=== PATIENT | male | born 1950 | race Caucasian/White ===

== ENCOUNTER 2020-10-21 22:35 | Inpatient (IN) | payer MEDICARE, MEDICAID, SELFPAY ==
[2020-10-21 22:37] VITALS: BP 151/81; PULSE 87; RESP 18; TEMP 36.8; O2SAT 93; BMI 47.0
--- NOTE | 2020-10-21 22:40 | XR_ITS ---
WS: [id number] XR pelvis 1-2V* [id number] REASON FOR EXAM: Pain FINDINGS: Pubic symphysis and superior and interpubic rami are unremarkable. There is asymmetric arthropathy involving the hip joints characterized by severe narrowing of the tessa nt space with spurring of the acetabulum and femoral heads. No fracture or dislocation identified. XR/XR pelvis 1-2V* [id number] IMPRESSION: Moderate to severe osteoarthritis both hips.
[2020-10-21 22:42] VITALS: BP 151/81; PULSE 88; RESP 18; O2SAT 94
--- NOTE | 2020-10-21 22:57 | W.ED.GENADLT ---
HPI - General Adult General: Chief complaint: General Medical Stated complaint: PAIN ALL OVER Time Seen by Provider: 10/21/20 22:37 Source: patient and EMS Mode of arrival: EMS Limitations: no limitations History of Present Illness: HPI narrative: Mr. Muhammad is a very nice 70-year-old male brought in by EMS with report of worsening osteoarthritis pain. Patient states this pain is chronic for the past 2 or 3 days though he has had increased pain. He also admits to runny nose, cough, congestion and sore throat. Patient had a negative COVID-19 test on October 14. The patient states that he hurts primarily in his hips and has quite a bit of stiffness and difficulty walking. He otherwise denies any focal complaints or concerns. Associated symptoms: Reports malaise; Deny chest pain, confusion, diaphoresis, dyspnea, headache(s), nausea, rash, palpitations, syncope or vomiting Review of Systems Const: Reports: body aches, fatigue and malaise; Denies: fever(s), chills or diaphoresis Eyes: Denies: change in vision, blurry vision, photophobia, eye discomfort, eye discharge, eye redness or yellow eyes ENMT: Reports: throat pain; Denies: odynophagia, hoarseness, swelling of lips/tongue, ear or mastoid pain, ear discharge, change in hearing or nasal discharge Card: Denies: chest pain, palpitations, irregular heart rhythm, edema, lightheadedness, syncope, pre-syncope, dyspnea on exertion or orthopnea Resp: Denies: dyspnea, productive cough, non-productive cough, wheezing, hemoptysis or chest congestion GI: Denies: abdominal pain, nausea, vomiting, hematemesis, coffee ground emesis, heartburn, diarrhea, constipation, GI cramping, hematochezia or melena : Denies: flank pain, dysuria, urinary frequency, urinary urgency or hematuria Musc: Reports: joint pain; Denies: neck pain, back pain, extremity pain, extremity swelling, joint swelling, joint redness, joint warmth or joint stiffness Skin/Breast: Denies: rash, pruritus, erythema, skin pain or skin tenderness Neuro: Denies: headache(s), numbness in extremities, weakness in extremities, sensory changes, lack of coordination, difficulty walking, dizziness, vertigo, confusion, Slurred speech present or seizure-like activity Nikko/Lymph: Denies: easy bruising, easy bleeding, petechiae, purpura or enlarged lymph nodes All/Imm: Denies: urticaria, throat swelling, tongue swelling, facial swelling or acute wheezing PFSH ED PFSH: Medical History Chronic low back pain Diabetes DM type 2 (diabetes mellitus, type 2) Hypertension Osteoarthritis Sleep apnea Surgical History No pertinent past surgical history Family History Mother Cancer Other CAD (coronary artery disease) Social History Smoking and tobacco status: former smoker Alcohol intake: never Substance/Drug Use: never Housing: Assisted Living Facility Physical Exam Const: COMMON NORMALS: no acute distress, patient oriented x3, no limitations and alert GENERAL APPEARANCE: cooperative HENMT: COMMON NORMALS: normocephalic, atraumatic, external ears normal, EAC's normal and Normal external nose present HEAD & SCALP: normal to inspection, normocephalic and atraumatic FACE & SINUS: normal facial exam and face symmetric NOSE: Normal external nose present and Normal nares present EXTERNAL EAR: Yes external ears normal EXTERNAL AUDITORY CANAL: EAC's normal MOUTH: Normal oral and palatal mucosa present, lip normal and tongue normal Eye: COMMON NORMALS: Equal, round and reactive pupils present and conjunctivae normal GENERAL EYE: appearance normal, both eyes and all related structures ALIGNMENT: Yes alignment normal PERIORBITAL: periorbital findings normal EYELID: eyelids normal CONJUNCTIVA: Yes conjunctivae normal SCLERA: sclerae normal PUPIL: Yes Equal, round and reactive pupils present Neck/C-Spine: COMMON NORMALS: full ROM, no lymphadenopathy, supple, no meningeal signs and no JVD GENERAL: Yes normal visual inspection and Yes trachea midline Chest: COMMONS NORMALS: normal inspection of the chest and normal palpation of entire chest wall Resp: COMMON NORMALS: normal respiratory effort, No retractions, No use of accessory muscles and clear to auscultation bilaterally EFFORT & INSPECTION: Yes able to speak in complete sentences and Yes symmetric chest movement AUSCULTATION: clear to auscultation bilaterally, no crackles, no rales, no rhonchi and no wheezes Cardio: COMMON NORMALS: no JVD, regular rate, regular rhythm, S1 normal heart sound present and S2 normal heart sound present RATE: regular rate RHYTHM: regular rhythm HEART SOUNDS: S1 normal heart sound present, S2 normal heart sound present, no click, no gallops, no murmurs and no rubs GI: COMMON NORMALS: Soft to palpation and No hepatosplenomegaly present PALPATION: Yes Soft to palpation, No Tenderness to palpation present (GI), No Guarding due to palpation present (GI), No Rigid due to palpation, Yes No hepatosplenomegaly present, No Hernia present, No Palpable mass present and No Pulsatile mass present : COMMON NORMALS: Yes no CVA tenderness BLADDER/KIDNEY EXAM: Yes no CVA tenderness Back/Pelvis: COMMON NORMALS: no CVA tenderness, thoracic and lumbar spine normal to inspection, no thoracic nor lumbar tenderness and thoraco-lumbar ROM normal Extremity: COMMON NORMALS: normal to inspection, full ROM, capillary refill normal, no joint enlargement, no clubbing, cyanosis or edema and no calf tenderness Neuro: COMMON NORMALS: patient oriented x3, CN's II-XII intact bilaterally, moves all extremities, no focal motor deficits and no sensory deficits noted SENSORIUM/ORIENTATION: Yes alert MENINGEAL SIGNS: Yes no meningeal signs SPEECH: speech normal Psych: COMMON NORMALS: mental status grossly normal, Normal thought process present, cooperative, normal affect, speech normal and activity/motor behavior normal SPEECH: Yes normal speech THOUGHT PROCESS: Normal thought process present Skin: COMMON NORMALS: no rashes or lesions noted, turgor normal, no jaundice, no petechiae and no mottling GENERAL SKIN EXAM: no rashes or lesions noted and turgor normal Course Vital Signs: Vital signs: Vital Signs Temperature 98.6 F 10/22/20 03:18 Pulse Rate 71 10/22/20 04:00 Respiratory Rate 21 H 10/22/20 04:00 Blood Pressure 146/74 10/22/20 04:00 Pulse Oximetry 96 10/22/20 04:00 MDM - General Adult MDM Narrative: Medical decision making narrative: 0204 -patient has desaturated to a pulse ox 87% on room air and then with maximal amount of assistance with ambulation he desatted less than 85%. Nursing has informed me that it requires at least 2 people to help him keep upright along with using a walker. The patient got back to bed after walking less than 10 feet he had to have assistance to raise his legs in the bed because he was too weak. The patient's assisted living situation is 1 in which he has no assistance other than someone brings his meals and medicines. I do not believe it is safe for him to be discharged home in this environment. He has necessitating oxygen now so he does qualify for inpatient admission. The case was endorsed to Dr. Luevano and he is in agreement to admit for further evaluation and care. Lab Data: Attestation: I reviewed the patient's lab results. Labs: Lab Results 10/21/20 10/21/20 10/21/20 Range/Units 00:45 22:48 22:48 WBC (4.0-10.0) 10^3/ uL RBC (4.1-5.3) 10^6/u L Hgb (11.7-16.6) g/dL Hct (42.0-52.0) % MCV (80-94) fL MCH (28.0-34.0) pg MCHC (30.0-36.0) g/dL RDW (12.1-15.1) % Plt Count (130-400) 10^3/c mm MPV (7.4-10.4) fL Neut % (Auto) % Lymph % (Auto) % [place] % (Auto) % Eos % (Auto) % Baso % (Auto) % Neut # (Auto) (1.8-7.7) 10^3/u L Lymph # (Auto) (0.8-4.8) 10^3/u L [place] # (Auto) (0.2-0.9) 10^3/u L Eos # (Auto) (0.0-0.8) 10^3/u L Baso # (Auto) (0.0-0.1) 10^3/u L Nucleated RBC % (a uto) % Nucleated RBCs # /100WBC PT (12.1-14.9) SECO NDS INR (0.8-1.2) APTT (23.9-36.7) SECO NDS Fibrinogen (174-498) mg/dL D-Dimer (0-0.59) ug/mIFE U Specimen Type Arterial Sample Site Radial, right ABG pH 7.37 (7.35-7.45) ABG pCO2 49.4 H (35-45) mmHg ABG pO2 117.0 H (80.0-100.0) mmH g ABG HCO3 28.3 H (22-26) mmol/L ABG Base Excess 2.1 H (-2.0-2.0) mmol/ L Augusto Test Pos Hematocrit 39.9 L (42-52) % In Store Marketer ID ellpe Sodium (136-145) mmol/L Potassium (3.5-5.1) mmol/L Chloride (98-107) mmol/L Carbon Dioxide (22-29) mmol/L Anion Gap (5-19) BUN (8-23) mg/dL Creatinine (0.7-1.2) mg/dL GFR Calculation Glucose (65-115) mg/dL Calculated Osmolal ity (285-295) mOsm/k g Lactic Acid (0.5-2.2) mmol/L Calcium (8.5-10.5) mg/dL Magnesium (1.7-2.3) mg/dL Total Bilirubin (0.15-1.2) mg/dL AST (0-40) U/L ALT (0-41) U/L Alkaline Phosphata se (40-130) IU/L Troponin T Gen 5 n g/L (0-15) ng/L C-Reactive Protein (0.0-4.9) mg/L Total Protein (6.6-8.7) g/dL Albumin (3.5-5.2) g/dL Globulin (1.3-4.6) g/dL Procalcitonin (0-0.5) ng/mL Influenza Type A A g Negative (Negative) Influenza Type B A g Negative (Negative) SARS-CoV-2 Ag (Rap id) (Negative) Group A Strep Rapi d Negative (Negative) 10/21/20 10/21/20 10/21/20 Range/Units 22:48 23:06 23:06 WBC 5.9 (4.0-10.0) 10^3/ uL RBC 4.68 (4.1-5.3) 10^6/u L Hgb 13.9 (11.7-16.6) g/dL Hct 41.1 L (42.0-52.0) % MCV 87.8 (80-94) fL MCH 29.7 (28.0-34.0) pg MCHC 33.8 (30.0-36.0) g/dL RDW 13.8 (12.1-15.1) % Plt Count 170 (130-400) 10^3/c mm MPV 9.3 (7.4-10.4) fL Neut % (Auto) 67.1 % Lymph % (Auto) 13.4 % [place] % (Auto) 18.5 % Eos % (Auto) 0.3 % Baso % (Auto) 0.5 % Neut # (Auto) 3.94 (1.8-7.7) 10^3/u L Lymph # (Auto) 0.8 (0.8-4.8) 10^3/u L [place] # (Auto) 1.1 H (0.2-0.9) 10^3/u L Eos # (Auto) 0.0 (0.0-0.8) 10^3/u L Baso # (Auto) 0.0 (0.0-0.1) 10^3/u L Nucleated RBC % (a uto) 0 % Nucleated RBCs # 0.0 /100WBC PT (12.1-14.9) SECO NDS INR (0.8-1.2) APTT (23.9-36.7) SECO NDS Fibrinogen (174-498) mg/dL D-Dimer (0-0.59) ug/mIFE U Specimen Type Sample Site ABG pH (7.35-7.45) ABG pCO2 (35-45) mmHg ABG pO2 (80.0-100.0) mmH g ABG HCO3 (22-26) mmol/L ABG Base Excess (-2.0-2.0) mmol/ L Augusto Test Hematocrit (42-52) % In Store Marketer ID Sodium 131 L (136-145) mmol/L Potassium 4.0 (3.5-5.1) mmol/L Chloride 93 L (98-107) mmol/L Carbon Dioxide 25 (22-29) mmol/L Anion Gap 17.0 (5-19) BUN 21 (8-23) mg/dL Creatinine 1.0 (0.7-1.2) mg/dL GFR Calculation Not Reportable Glucose 206 H (65-115) mg/dL Calculated Osmolal ity 281 L (285-295) mOsm/k g Lactic Acid (0.5-2.2) mmol/L Calcium 9.2 (8.5-10.5) mg/dL Magnesium (1.7-2.3) mg/dL Total Bilirubin 0.4 (0.15-1.2) mg/dL AST 21 (0-40) U/L ALT 21 (0-41) U/L Alkaline Phosphata se 60 (40-130) IU/L Troponin T Gen 5 n g/L (0-15) ng/L C-Reactive Protein (0.0-4.9) mg/L Total Protein 7.6 (6.6-8.7) g/dL Albumin 4.1 (3.5-5.2) g/dL Globulin 3.5 (1.3-4.6) g/dL Procalcitonin (0-0.5) ng/mL Influenza Type A A g (Negative) Influenza Type B A g (Negative) SARS-CoV-2 Ag (Rap id) Positive H (Negative) Group A Strep Rapi d (Negative) 10/21/20 10/21/20 10/21/20 Range/Units 23:06 23:06 23:39 WBC (4.0-10.0) 10^3/ uL RBC (4.1-5.3) 10^6/u L Hgb (11.7-16.6) g/dL Hct (42.0-52.0) % MCV (80-94) fL MCH (28.0-34.0) pg MCHC (30.0-36.0) g/dL RDW (12.1-15.1) % Plt Count (130-400) 10^3/c mm MPV (7.4-10.4) fL Neut % (Auto) % Lymph % (Auto) % [place] % (Auto) % Eos % (Auto) % Baso % (Auto) % Neut # (Auto) (1.8-7.7) 10^3/u L Lymph # (Auto) (0.8-4.8) 10^3/u L [place] # (Auto) (0.2-0.9) 10^3/u L Eos # (Auto) (0.0-0.8) 10^3/u L Baso # (Auto) (0.0-0.1) 10^3/u L Nucleated RBC % (a uto) % Nucleated RBCs # /100WBC PT 14.50 (12.1-14.9) SECO NDS INR 1.10 (0.8-1.2) APTT 34.3 (23.9-36.7) SECO NDS Fibrinogen 470 (174-498) mg/dL D-Dimer 2.19 H (0-0.59) ug/mIFE U Specimen Type Sample Site ABG pH (7.35-7.45) ABG pCO2 (35-45) mmHg ABG pO2 (80.0-100.0) mmH g ABG HCO3 (22-26) mmol/L ABG Base Excess (-2.0-2.0) mmol/ L Augusto Test Hematocrit (42-52) % In Store Marketer ID Sodium (136-145) mmol/L Potassium (3.5-5.1) mmol/L Chloride (98-107) mmol/L Carbon Dioxide (22-29) mmol/L Anion Gap (5-19) BUN (8-23) mg/dL Creatinine (0.7-1.2) mg/dL GFR Calculation Glucose (65-115) mg/dL Calculated Osmolal ity (285-295) mOsm/k g Lactic Acid (0.5-2.2) mmol/L Calcium (8.5-10.5) mg/dL Magnesium (1.7-2.3) mg/dL Total Bilirubin (0.15-1.2) mg/dL AST (0-40) U/L ALT (0-41) U/L Alkaline Phosphata se (40-130) IU/L Troponin T Gen 5 n g/L (0-15) ng/L C-Reactive Protein (0.0-4.9) mg/L Total Protein (6.6-8.7) g/dL Albumin (3.5-5.2) g/dL Globulin (1.3-4.6) g/dL Procalcitonin 0.10 (0-0.5) ng/mL Influenza Type A A g (Negative) Influenza Type B A g (Negative) SARS-CoV-2 Ag (Rap id) (Negative) Group A Strep Rapi d (Negative) 10/21/20 10/21/20 10/22/20 Range/Units 23:39 23:39 00:09 WBC (4.0-10.0) 10^3/ uL RBC (4.1-5.3) 10^6/u L Hgb (11.7-16.6) g/dL Hct (42.0-52.0) % MCV (80-94) fL MCH (28.0-34.0) pg MCHC (30.0-36.0) g/dL RDW (12.1-15.1) % Plt Count (130-400) 10^3/c mm MPV (7.4-10.4) fL Neut % (Auto) % Lymph % (Auto) % [place] % (Auto) % Eos % (Auto) % Baso % (Auto) % Neut # (Auto) (1.8-7.7) 10^3/u L Lymph # (Auto) (0.8-4.8) 10^3/u L [place] # (Auto) (0.2-0.9) 10^3/u L Eos # (Auto) (0.0-0.8) 10^3/u L Baso # (Auto) (0.0-0.1) 10^3/u L Nucleated RBC % (a uto) % Nucleated RBCs # /100WBC PT (12.1-14.9) SECO NDS INR (0.8-1.2) APTT (23.9-36.7) SECO NDS Fibrinogen (174-498) mg/dL D-Dimer (0-0.59) ug/mIFE U Specimen Type Sample Site ABG pH (7.35-7.45) ABG pCO2 (35-45) mmHg ABG pO2 (80.0-100.0) mmH g ABG HCO3 (22-26) mmol/L ABG Base Excess (-2.0-2.0) mmol/ L Augusto Test Hematocrit (42-52) % In Store Marketer ID Sodium (136-145) mmol/L Potassium (3.5-5.1) mmol/L Chloride (98-107) mmol/L Carbon Dioxide (22-29) mmol/L Anion Gap (5-19) BUN (8-23) mg/dL Creatinine (0.7-1.2) mg/dL GFR Calculation Glucose (65-115) mg/dL Calculated Osmolal ity (285-295) mOsm/k g Lactic Acid 1.6 (0.5-2.2) mmol/L Calcium (8.5-10.5) mg/dL Magnesium 1.8 (1.7-2.3) mg/dL Total Bilirubin (0.15-1.2) mg/dL AST (0-40) U/L ALT (0-41) U/L Alkaline Phosphata se (40-130) IU/L Troponin T Gen 5 n g/L 18 H (0-15) ng/L C-Reactive Protein 35.3 H (0.0-4.9) mg/L Total Protein (6.6-8.7) g/dL Albumin (3.5-5.2) g/dL Globulin (1.3-4.6) g/dL Procalcitonin (0-0.5) ng/mL Influenza Type A A g (Negative) Influenza Type B A g (Negative) SARS-CoV-2 Ag (Rap id) (Negative) Group A Strep Rapi d (Negative) Imaging Data^: CXR: Attestation: I personally reviewed and interpreted this imaging study as follows: My impression: Bilateral interstitial infiltrates left greater than right. Left-sided pleural effusion. CT Chest: Radiologist's impression: [address] [address] [address] Scan Report Signed Patient: Ant Muhammad #: [id number] : 1950Acct#:[id number] Age/Sex: 70 / MADM Date: 10/21/20 Loc: ERRoom/Bed: Attending Dr: Ordering Provider/Ordering MD: Amisha Emanuel DO Date of Service: 10/21/20 Procedure(s): CT angio chest PE protcl [id number] Accession Number(s): [id number] Report Number: [id number] PROCEDURE INFORMATION: Exam: CT Angiography Chest With Contrast Exam date and time: 10/21/2020 11:41 PM Age: 70 years old Clinical indication: Cough and shortness of breath; Patient HX: Cough. Congestion. SOB. Covid +. Patient unable to keep both arms above head. Morbid obesity. Iv established in top of hand. Reduced injection rate. Best exam submitted. ; Additional info: Dyspnea, positive d-dimer TECHNIQUE: Imaging protocol: Computed tomographic angiography of the chest with intravenous contrast. 3D rendering (Not supervised by radiologist): MIP and/or 3D reconstructed images were created by the technologist. Radiation optimization: All CT scans at this facility use at least one of these dose optimization techniques: automated exposure control; mA and/or kV adjustment per patient size (includes targeted exams where dose is matched to clinical indication); or iterative reconstruction. Contrast material: OMNI 350; Contrast volume: 78 ml; Contrast route: INTRAVENOUS (IV); COMPARISON: CR XR chest 1V portable [id number] 10/21/2020 11:08 PM RADIATION DOSE METRICS: Total DLP (mGy-cm): 747.17 FINDINGS: Pulmonary arteries: Normal. No pulmonary emboli. Aorta: Unremarkable. No aortic aneurysm. No aortic dissection. Lungs: Left lower lobe atelectasis versus infiltrate. Pleural space: Large left pleural effusion. Heart: Coronary artery atherosclerotic calcifications. Lymph nodes: Unremarkable. No enlarged lymph nodes. Bones/joints: Unremarkable. No acute fracture. Soft tissues: Unremarkable. CT/CT angio chest PE protcl [id number] IMPRESSION: 1. Negative for pulmonary embolus. 2. Large left pleural effusion. 3. Left lower lobe atelectasis versus infiltrate. 4. Coronary artery atherosclerotic calcifications. Radiation Dose CTDIVOL = (mGy): DLP = 747.17 (mGy-cm) Dictated By:Miguel Rivero MD Signed By:Miguel Rivero MDSigned Date/Time:10/22/2027 DD/ EKG Data^: EKG 1: Attestation: I personally reviewed and interpreted this EKG as follows: EKG interpretation date: 10/22/20 EKG interpretation time: 00:19 Interpretation: Normal sinus rhythm at 75 beats a minute, right bundle branch block, right axis deviation, no acute ST or T wave changes. Computer generated interpretation: Chest CTA 10/21/20 23:39 IMPRESSION: 1. Negative for pulmonary embolus. 2. Large left pleural effusion. 3. Left lower lobe atelectasis versus infiltrate. 4. Coronary artery atherosclerotic calcifications. 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
[2020-10-21] MEDS: ondansetron 2 mg/ML SDV 2 mL 4 MG IVP (23:03)
[2020-10-21 23:05] VITALS: RESP 16; O2SAT 94
[2020-10-21] MEDS: morphine 4 mg/mL SDV 1 mL IVP (23:05)
[2020-10-21] MEDS: sodium chloride 0.9% 1,000 ML 100 ML IV (23:06)
--- NOTE | 2020-10-21 23:11 | XR_ITS ---
WS: [id number] XR chest 1V portable [id number] REASON FOR EXAM: Cough FINDINGS: Moderate tortuosity the thoracic aorta without significant dilatation. No significant cardiomegaly. Moderate left pleural effusion and infiltrate and consolidation in the left lung base adjacent to the effusion. The right lung is relatively clear. Moderate degenerative changes in the thoracic spine and shoulder joints. XR/XR chest 1V portable [id number] IMPRESSION: Left pleural effusion and adjacent basilar lung consolidation, unknown chronici ty.
[2020-10-21 23:18] LABS: Basophils % 0.5 %; Eosinophils % 0.3 %; Hematocrit 41.1 % (42.0-52.0); Hemoglobin 13.9 g/dL (11.7-16.6); Lymphocytes # 0.8 10^3/uL (0.8-4.8); Lymphocytes % 13.4 %; Mean Corpuscular HGB Conc 33.8 g/dL (30.0-36.0); Mean Corpuscular Hemoglobin 29.7 pg (28.0-34.0); Mean Corpuscular Volume 87.8 fL (80-94); Mean Platelet Volume 9.3 fL (7.4-10.4); Monocytes # 1.1 10^3/uL (0.2-0.9); Monocytes % 18.5 %; Neutrophils # 3.94 10^3/uL (1.8-7.7); Neutrophils % 67.1 %; Nucleated Red Blood Cells % 0 %; Platelet Count 170 10^3/cmm (130-400); Red Blood Count 4.68 10^6/uL (4.1-5.3); Red Cell Distribution Width 13.8 % (12.1-15.1); White Blood Count 5.9 10^3/uL (4.0-10.0)
[2020-10-21 23:31] LABS: Influenza A by IFA Negative (Negative); Influenza B by IFA Negative (Negative)
[2020-10-21 23:32] LABS: Alanine Aminotransferase 21 U/L (0-41); Albumin Level 4.1 g/dL (3.5-5.2); Alkaline Phosphatase 60 IU/L (40-130); Aspartate Amino Transferase 21 U/L (0-40); Blood Urea Nitrogen 21 mg/dL (8-23); Calcium 9.2 mg/dL (8.5-10.5); Carbon Dioxide 25 mmol/L (22-29); Chloride 93 mmol/L (98-107); D Dimer 2.19 ug/mIFEU (0-0.59); Globulin 3.5 g/dL (1.3-4.6); Glucose 206 mg/dL (65-115); Osmolality Calculated 281 mOsm/kg (285-295); Sodium 131 mmol/L (136-145); Total Bilirubin 0.4 mg/dL (0.15-1.2); Total Protein 7.6 g/dL (6.6-8.7)
[2020-10-21 23:32] LABS: Rapid Strep A Test Negative (Negative); SARS Covid-2 Antigen Positive (Negative)
--- NOTE | 2020-10-21 23:39 | ECG_ITS ---
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 Measurements Intervals [place] Rate: 75 P: 2 WI: 200 QRS: 103 QRSD: 121 T: 42 QT: 393 QTc: 440 Interpretive Statements SINUS RHYTHM RIGHT AXIS DEVIATION [QRS AXIS > 100] RIGHT BUNDLE BRANCH BLOCK [120+ ms QRS DURATION, UPRIGHT V1, 40+ ms S IN I/aVL/V4/V5/V6] No previous ECG available for comparison Electronically Signed On 10-22-2020 19:40:07 FACTORER by Nicholas Lam M.D. [id number]
--- NOTE | 2020-10-21 23:39 | CTR_ITS ---
PROCEDURE INFORMATION: Exam: CT Angiography Chest With Contrast Exam date and time: 10/21/2020 11:41 PM Age: 70 years old Clinical indication: Cough and shortness of breath; Patient HX: Cough. Congestion. SOB. Covid +. Patient unable to keep both arms above head. Morbid obesity. Iv established in top of hand. Reduced injection rate. Best exam submitted. ; Additional info: Dyspnea, positive d-dimer TECHNIQUE: Imaging protocol: Computed tomographic angiography of the chest with intravenous contrast. 3D rendering (Not supervised by radiologist): MIP and/or 3D reconstructed images were created by the technologist. Radiation optimization: All CT scans at this facility use at least one of these dose optimization techniques: automated exposure control; mA and/or kV adjustment per patient size (includes targeted exams where dose is matched to clinical indication); or iterative reconstruction. Contrast material: OMNI 350; Contrast volume: 78 ml; Contrast route: INTRAVENOUS (IV); COMPARISON: CR XR chest 1V portable [id number] 10/21/2020 11:08 PM RADIATION DOSE METRICS: Total DLP (mGy-cm): 747.17 FINDINGS: Pulmonary arteries: Normal. No pulmonary emboli. Aorta: Unremarkable. No aortic aneurysm. No aortic dissection. Lungs: Left lower lobe atelectasis versus infiltrate. Pleural space: Large left pleural effusion. Heart: Coronary artery atherosclerotic calcifications. Lymph nodes: Unremarkable. No enlarged lymph nodes. Bones/joints: Unremarkable. No acute fracture. Soft tissues: Unremarkable. CT/CT angio chest PE protcl [id number] IMPRESSION: 1. Negative for pulmonary embolus. 2. Large left pleural effusion. 3. Left lower lobe atelectasis versus infiltrate. 4. Coronary artery atherosclerotic calcifications. Radiation Dose CTDIVOL = (mGy): DLP = 747.17 (mGy-cm)
[2020-10-21 23:53] VITALS: BP 154/78; PULSE 88; RESP 16; O2SAT 94
[2020-10-21] MEDS: dexamethasone 4 mg/mL INJ 6 MG IVP (23:53)
[2020-10-21 23:55] LABS: Fibrinogen 470 mg/dL (174-498); Partial Thromboplastin Time 34.3 SECONDS (23.9-36.7)
[2020-10-21 23:58] LABS: C Reactive Protein 35.3 mg/L (0.0-4.9); Magnesium 1.8 mg/dL (1.7-2.3)
[2020-10-21 23:59] LABS: Troponin T (5th) Once 18 ng/L (0-15)
[2020-10-22] VITALS (125 sets, daily range): BP systolic 107–173; BP diastolic 54–93; PULSE 52–99; RESP 10–24; TEMP 36.6–37; O2SAT 85–100
[2020-10-22] MEDS: iohexol 350 mg/mL 100 mL Btl IV (00:16)
[2020-10-22 00:54] LABS: ABG PCO2 49.4 mmHg (35-45); ABG PH Result 7.37 (7.35-7.45); Arterial Blood Gas Hematocrit 39.9 % (42-52); Base Excess ABG 2.1 mmol/L (-2.0-2.0); Blood Gas Allen Test Pos; Blood Gas Sample Site Radial, right; Blood Gas Sample Type Arterial; HCO3 ABG 28.3 mmol/L (22-26)
[2020-10-22 00:54] LABS: Lactic Sepsis W/Reflex 1.6 mmol/L (0.5-2.2)
--- NOTE | 2020-10-22 01:23 | P.HP_ITS ---
Providers/Chief Complaint Primary Care Provider: Rambo Melendez DO Chief Complaint: PAIN ALL OVER History of Present Illness Ant Muhammad is a 70 year old male who is a resident of assisted living, presented to the hospital with chief complaint of hip pain. Patient is stating that his lips locked up and he is not able to ambulate anymore at the assisted living, he is not a reliable historian, he is not able to tell me why he is taking Toprol succinate along Cardizem, Lasix, he is denying history of coronary disease, stroke, CHF, but is endorsing history of lower extremity edema, left leg DVT in the past, history of sleep apnea for which he uses CPAP. He has not noticed any fever, shortness of breath, chest pain, at the facility. He is stating there are couple of residents who are Covid positive there. His main concern was hip pain for which he decided to come to the hospital for further evaluation. He is endorsing pain in his neck, digits, arms, knees and legs. Diagnosis in the ER revealed normal hemodynamics, he was initially saturating well on room air at rest but on ambulation in the ER his oxygen dropped to 85 to 88% for which he required 2 L nasal cannula, I was given this information by the ER physician Dr. Rasheed. CTA chest was done for high D-dimer which came back negative for PE but showed moderate pleural effusion, patient is afebrile, no leukocytosis, pelvic x-ray official reading is pending, Covid antigen positive Review of Systems Const: Reports: body aches, fatigue and malaise; Denies: fever(s) or chills Eyes: Denies: change in vision ENMT: Denies: throat pain Card: Denies: chest pain Resp: Denies: dyspnea GI: Reports: constipation; Denies: abdominal pain : Denies: flank pain Musc: Reports: back pain, extremity pain, extremity swelling, joint pain, joint stiffness and muscle cramps Skin/Breast: Reports: lesions Neuro: Reports: weakness in extremities and difficulty walking; Denies: headache(s) Psych: Reports: depression Endo: Denies: polyuria Nikko/Lymph: Denies: easy bruising All/Imm: Denies: urticaria Medications/Allergies Home Medications Medication Instructions Recorded Confirmed Last Taken Type albuterol 90 mcg INHALATION Q4H PRN 10/21/20 10/21/2010/18/20 20:05 History aspirin 325 mg PO DAILY 10/21/20 10/21/20 10/21/20 06:23 History atorvastatin 10 mg PO DAILY 10/21/20 10/21/20 10/21/20 19:32 History carbamide peroxide [Debrox] 5 drp OTIC (EAR) DAILY 10/21/20 10/21/20 Unknown History cholecalciferol (vitamin D3) 25 mcg PO DAILY 10/21/20 10/21/20 Unknown History [Vitamin D3] cyclobenzaprine 10 mg PO TID PRN 10/21/20 10/21/20 10/21/20 19:32 History diclofenac sodium 2 g TOPICAL QID 10/21/20 10/21/20 Unknown History diltiazem HCl 180 mg PO DAILY 10/21/20 10/21/20 10/21/20 07:55 History docosanol [Abreva] 1 applic TOPICAL 5XD 10/21/20 10/21/20 Unknown History docusate sodium [Colace] 50 mg PO DAILY PRN 10/21/20 10/21/20 Unknown History ergocalciferol (vitamin D2) 1,250 mcg PO DAILY 10/21/20 10/21/20 10/17/20 08:14 History [Vitamin D2] furosemide [Lasix] 20 mg PO DAILY 10/21/20 10/21/20 10/21/20 07:55 History gabapentin 300 mg PO QID 10/21/20 10/21/20 10/21/20 19:32 History garlic 1,000 mg PO BID 10/21/20 10/21/20 10/21/20 19:32 History glipizide 10 mg PO BID 10/21/20 10/21/20 10/21/20 19:32 History hydrochlorothiazide 25 mg PO DAILY 10/21/20 10/21/20 10/21/20 07:55 History lisinopril 20 mg PO DAILY 10/21/20 10/21/20 10/21/20 07:32 History metformin 1,000 mg PO BID 10/21/20 10/21/20 10/21/20 19:32 History metoprolol succinate 100 mg PO Q24H 10/21/20 10/21/20 10/21/20 06:23 History naproxen 500 mg PO BID PRN 10/21/20 10/21/20 10/21/20 19:50 History pioglitazone 30 mg PO DAILY 10/21/20 10/21/20 10/21/20 06:23 History potassium gluconate 595 mg PO DAILY 10/21/20 10/21/20 10/21/20 07:55 History umeclidinium-vilanterol [Anoro 1 inh INHALATION DAILY 10/21/20 10/21/20 Unknown History Ellipta] umeclidinium-vilanterol [Anoro 1 inh INHALATION DAILY 10/21/20 10/21/20 10/21/20 06:23 History Ellipta] Allergies Allergy/AdvReac Type Severity Reaction Status Date / Time sitagliptin [From ] Allergy ADR-Nausea Verified 10/21/20 22:44 PFSH Acute PFSH: Medical History Chronic low back pain Diabetes DM type 2 (diabetes mellitus, type 2) Hypertension Osteoarthritis Sleep apnea Surgical History No pertinent past surgical history Family History Mother Cancer Other CAD (coronary artery disease) Social History Smoking and tobacco status: former smoker Alcohol intake: never Substance/Drug Use: never Housing: Assisted Living Facility Vitals/I&O/Wt Last Vital Signs Temp 98.2 F 10/21/20 22:37 Pulse 88 10/21/20 23:53 Resp 16 10/21/20 23:53 BP 154/78 10/21/20 23:53 Pulse Ox 94 10/21/20 23:53 10/21/20 10/21/20 10/22/20 14:59 22:59 06:59 Intake Total 100 / 100 Balance 100 / 100 Weight last 48 hrs Weight 148.778 kg Physical Exam Narrative: EXAM NARRATIVE: Morbidly obese male sitting comfortably in his bed in semifowler position Saturating well on 2 L nasal cannula 96% None complaining of active chest pain S1, S2 no murmur appreciated Clinically looks fluid overloaded Bilateral lower extremity 1+ pitting edema Venous stasis dermatitis noted Good airflow without active wheezing or rhonchi Abdomen distended, bowel sound present nontender, soft Patient seems lethargic and tired and not a good historian at all EOMI, PERRLA No neurological deficit GCS 15 Two-person assist ambulation in the ER revealed hypoxia on ambulation 85% Data : 10/21/20 23:06 10/21/20 23:06 A&P Assessment and plan (1) Hip pain: Status: Acute (2) Pneumonia due to COVID-19 virus: Status: Acute (3) Hypoxemia: Status: Acute (4) Pleural effusion on left: Status: Acute (5) Osteoarthritis: Status: Acute (6) Chronic low back pain: Status: Acute Additional A&P Information Acute hypoxic respiratory failure secondary COVID-19 pneumonia He also has moderate left-sided pleural effusion Patient is not sure whether he carries diagnosis of CHF however he is taking Lasix I will start him on Decadron and remdesivir, stop IV fluids that were initiated in the ER On ambulation his oxygen saturation dropped to 85% as per nursing report He is afebrile, No PE identified, high D-dimer secondary to COVID-19 inflammation Would avoid antibiotics, procalcitonin 0.1, he is not septic Bilateral hip pain Patient has history of osteoarthritis, endorses history of trigger injections Pelvic x-ray official read is pending, will obtain ESR, my suspicion for septic joint is low at this point Tylenol for analgesia Physical therapy evaluation before discharge Type 2 diabetes Consistent carb diet, moderate sliding scale Bilateral lower extremity edema Unknown history of CHF, continue Lasix and hold hydrochlorothiazide Will obtain records from [facility] Patient is full code Consistent carb cardiac diet DVT prophylaxis Lovenox Attestations Medical Necessity Statement*: Anticipating discharge in less than 48 hours currently afebrile, on Decadron and remdesivir for acute hypoxic respite failure due to positive Covid pneumonia Time Spent in Patient Care: (>than 50% of time spent in counselling and/or direct pt care on unit) . 50mins Coding Level of Care Code Acute Welt Stitch Cleaner for Chg Fwd Diagnoses Hip pain M25.559 Pneumonia due to COVID-19 virus U07.1; J12.89 Hypoxemia R09.02 Pleural effusion on left J90 Osteoarthritis M19.90 Chronic low back pain M54.5; G89.29
[2020-10-22] MEDS: HYDROcodone-acetaminophen 5-325 mg Tablet 1 TAB PO (01:36)
[2020-10-22] MEDS: ketorolac 30 mg/mL INJ 10 MG IVP (01:37)
--- NOTE | 2020-10-22 01:59 | PC.NURSE ---
PT walked per MD request. Pt required two nurses and a walker for assistance with ambulation. Pt was unable to get back in the bed. Pt oxygen saturation dropped from 88 on RA to 85.
[2020-10-22] MEDS: dexamethasone 4 mg/mL INJ 6 MG IVP (02:28)
[2020-10-22] MEDS: metoprolol succinate ER (24 HR) 100 mg Tablet PO (03:55)
[2020-10-22] MEDS: enoxaparin 40 mg/0.4 mL Syringe SUBCUT (03:55)
[2020-10-22 05:42] LABS: Basophils % 0.3 %; Hematocrit 40.2 % (42.0-52.0); Hemoglobin 13.5 g/dL (11.7-16.6); Lymphocytes # 0.6 10^3/uL (0.8-4.8); Lymphocytes % 9.8 %; Mean Corpuscular HGB Conc 33.6 g/dL (30.0-36.0); Mean Corpuscular Hemoglobin 29.7 pg (28.0-34.0); Mean Corpuscular Volume 88.4 fL (80-94); Mean Platelet Volume 9.7 fL (7.4-10.4); Monocytes # 0.4 10^3/uL (0.2-0.9); Monocytes % 6.1 %; Neutrophils # 4.93 10^3/uL (1.8-7.7); Neutrophils % 83.5 %; Nucleated Red Blood Cells % 0 %; Platelet Count 160 10^3/cmm (130-400); Red Blood Count 4.55 10^6/uL (4.1-5.3); Red Cell Distribution Width 13.9 % (12.1-15.1); White Blood Count 5.9 10^3/uL (4.0-10.0)
[2020-10-22 06:01] LABS: Blood Urea Nitrogen 21 mg/dL (8-23); Calcium 8.7 mg/dL (8.5-10.5); Carbon Dioxide 25 mmol/L (22-29); Chloride 93 mmol/L (98-107); Glucose 235 mg/dL (65-115); Osmolality Calculated 283 mOsm/kg (285-295); Sodium 131 mmol/L (136-145)
[2020-10-22 06:02] LABS: Anion Gap 17.3 (5-19); Potassium 4.3 mmol/L (3.5-5.1)
[2020-10-22 06:08] LABS: NT Pro B Type Natriuretic Pept 138 pg/mL (0-125)
[2020-10-22 06:18] LABS: Erythrocyte Sedimentation Rate 47 mm/hr (0-10)
--- NOTE | 2020-10-22 07:22 | PC.NURSE ---
Patient arrived to [facility] @0315 via gurney from ED, accompanied by ED staff X1. He was transferred over to VICU bed with assistance of RN nursing staff X3 without incident. 2L NC with SPO2 95%. Room orientation complete. He remains Afebrile, and has not had any c/o pain since transfer/admin. He has stated that he does not comply with a DM lifestyle, and does not take insulin to manage BG levels. Patient has verbalized some worry towards the decrease use of bilateral wrist/hands. Some minor 1+ swelling noted. Call light in reach. No needs verbalized at this time.
[2020-10-22] MEDS: FUROsemide 40 mg Tablet PO (08:39)
[2020-10-22] MEDS: dexamethasone 4 mg Tablet 6 MG PO ×3 (08:39→20:29)
[2020-10-22] MEDS: gabapentin 300 mg Capsule PO ×4 (08:39→20:30)
[2020-10-22] MEDS: lisinopril 20 mg Tablet PO (08:40)
[2020-10-22] MEDS: aspirin 325 mg Tablet PO (08:40)
[2020-10-22] MEDS: atorvastatin 40 mg Tablet 10 MG PO (08:40)
[2020-10-22 11:19] LABS: Glucose Point of Care 408 mg/dL (70-110)
[2020-10-22 11:19] LABS: Glucose Point of Care 343 mg/dL (70-110)
--- NOTE | 2020-10-22 11:19 | PM.PN ---
Subjective Subjective: Interval history: Patient reports that he has significant joint pains all over including bilateral hips, shoulders, neck, hands with associated stiffness that does not get relieved with movement. Reports that his pain has been going on for a very long period of time but appears now to be at its worse. Reports that he saw specialist in [place] and had carpal tunnel surgery on the right side and is planning to do on the left. Reports that surgery did not help him and he still continues to be quite stiff at all times. Denies shortness of breath or chest pain. Denies abdominal pain. He has urinary incontinence. He has large left pleural effusion. Overall patient is a poor historian and does not know much specifics in his past medical history. He cannot make good fist bilaterally. He appears to have very diffuse MCP joint swelling. No erythema overlying any joints. Vitals/I&O/Wt Last Vital Signs Temp 98.2 F 10/22/20 07:00 Pulse 55 L 10/22/20 10:55 Resp 18 10/22/20 10:55 BP 107/54 10/22/20 10:55 Pulse Ox 97 10/22/20 10:55 10/21/20 10/22/20 10/22/20 22:59 06:59 14:59 Intake Total 350 / 350 250 / 250 Balance 350 / 350 250 / 250 Weight last 48 hrs Weight 148.778 kg Physical Exam Const: COMMON NORMALS: no acute distress Resp: COMMON NORMALS: normal respiratory effort OTHER: Minimal left basilar Rales. Cardio: COMMON NORMALS: regular rate, regular rhythm and S2 normal heart sound present RATE: regular rate RHYTHM: regular rhythm HEART SOUNDS: S2 normal heart sound present OTHER: No lower extremity edema GI: COMMON NORMALS: Normal to inspection, nondistended, normoactive bowel sounds present, Soft to palpation and non-tender PALPATION: Yes Soft to palpation Neuro: COMMON NORMALS: no focal motor deficits Data : 10/22/20 03:45 10/22/20 03:45 A&P Assessment and plan (1) Hip pain: Bilateral. Status: Acute (2) Pneumonia due to COVID-19 virus: Status: Acute (3) Hypoxemia: Status: Acute (4) Pleural effusion on left: Status: Acute (5) Osteoarthritis: Appears to have rheumatoid arthritis. Status: Acute (6) Chronic low back pain: Status: Acute Additional A&P Information Acute hypoxic respiratory failure secondary COVID-19 pneumonia He also has moderate left-sided pleural effusion Patient is not sure whether he carries diagnosis of CHF however he is taking Lasix I will start him on Decadron and remdesivir, stop IV fluids that were initiated in the ER On ambulation his oxygen saturation dropped to 85% as per nursing report He is afebrile, No PE identified, high D-dimer secondary to COVID-19 inflammation Would avoid antibiotics, procalcitonin 0.1, he is not septic Bilateral hip, shoulder, neck, bilateral hands pain. Patient has history of osteoarthritis, endorses history of trigger injections Pelvic x-ray official read is pending, will obtain ESR, my suspicion for septic joint is low at this point Tylenol for analgesia Physical therapy evaluation before discharge Type 2 diabetes Consistent carb diet, moderate sliding scale Bilateral lower extremity edema Unknown history of CHF, continue Lasix and hold hydrochlorothiazide Will obtain records from [facility] Highly suspected rheumatoid arthritis. Patient is full code Consistent carb cardiac diet DVT prophylaxis Lovenox PLAN: Obtain echocardiogram to evaluate wall motion ejection fraction. Will switch aspirin to 81 mg daily Continue Lasix BladderScan and Place Sher if shows evidence of retention. Obtain UA to rule out UTI. Check anti-CCP and will increase dexamethasone to 3 times daily as patient appears to have rheumatoid arthritis. Protonix for GI protection. Septic arthritis felt highly unlikely. We will add [place] for pain control. Unfortunately we do not have rheumatology consultation available and we will request outpatient follow-up once discharged to be evaluated for DMARDs if diagnosed with RA. Discussed with RT and since patient is still symptomatic we will resume physical therapy tomorrow Attestations Medical Necessity Statement*: Patient with COVID-19 infection as well as severe polyarthritis requires close inpatient monitoring and treatment until deemed safe for discharge. Time Spent in Patient Care: 16 - 35 minutes Coding Level of Care Code Acute Director Financial Services for g Fwd Diagnoses Hip pain M25.559 Pneumonia due to COVID-19 virus U07.1; J12.89 Hypoxemia R09.02 Pleural effusion on left J90 Osteoarthritis M19.90 Chronic low back pain M54.5; G89.29
--- NOTE | 2020-10-22 11:25 | USCV_ITS ---
Ant Muhammad Age: 70 Gender: M : 1950 Exam Date: 10/22/2020 15:46 Ordering Phys: Ethan Alcocer MD Technologist: Jhonny Luis [place] [facility] [place]: ? CHF BP: 145 / 70 HR: 65 Rhythm: Sinus Technical Quality: Very technically difficult study MEASUREMENTS (Male / Female) Normal Values 2D ECHO LV Ejection Fraction MOD 2C 70.8 % LV Ejection Fraction 2C AL 70.8 % LA Width 3.9 cm LA Height 3.8 cm RA Width 3.1 cm RA Height 4.7 cm DOPPLER AV Peak Velocity 158.0 cm/s LVOT Peak Velocity 99.0 cm/s MV Area PHT 5.0 cm squared Mitral E to A Ratio 0.9 MV E' Velocity 52.0 cm/s Mitral E to MV E' Ratio 11.9 Mitral E to LV E' Lateral Ratio 10.2 Mitral E to LV E' Septal Ratio 14.2 TR Peak Velocity 246.0 cm/s TR Peak Gradient 24.2 mmHg TV Peak E Velocity 97.0 cm/s FINDINGS Left Ventricle Normal left ventricular size and systolic function. Left ventricular ejection fraction is estimated at 60 %. Although no diagnostic regional wall motion abnormality could be rectified, this possibility cannot be completely excluded based on the study. Abnormal septal motion consistent with conduction abnormality/paced rhythm. Normal diastolic function. Right Ventricle Normal right ventricular size and systolic function. Cuspid valve regurgitant jet is inadequate for estimation of right ventricle systolic pressure Right Atrium Normal right atrial size. Left Atrium Probably normal left atrial size. Mitral Valve Structurally normal mitral valve. Aortic Valve Aortic valve not well visualized. No aortic valve stenosis. No aortic valve regurgitation. Tricuspid Valve Tricuspid valve not well visualized. Trace tricuspid valve regurgitation. Pulmonic Valve Pulmonic valve not well visualized. Pericardium No pericardial effusion. Aorta Aorta not well visualized. Inferior vena cava not well visualized. CONCLUSIONS 1. This is a technically very difficult study. There are no parasternal windows. 2. Normal left ventricular size and systolic function. Left ventricular ejection fraction is estimated at 60 %. Although no diagnostic regional wall motion abnormality could be rectified, this possibility cannot be completely excluded based on the study. Abnormal septal motion consistent with conduction abnormality/paced rhythm. Normal diastolic function. 3. No pericardial effusion. 4. No prior similar studies to compare. Jackelyn Larsen MD (Electronically Signed) Final Date: 22 October 2020 18:40 S
[2020-10-22] MEDS: pantoprazole DR 40 mg Tablet PO (11:51)
--- NOTE | 2020-10-22 14:47 | PC.SOCIAL ---
Clarified with Jeremías in pharmacy and BAM infusion was cancelled. He did not receive this drug.
[2020-10-22 17:05] LABS: Glucose Point of Care 373 mg/dL (70-110)
[2020-10-22 20:02] LABS: Glucose Point of Care 390 mg/dL (70-110)
[2020-10-22] MEDS: morphine 4 mg/mL SDV 1 mL IVP (20:30)
[2020-10-22 20:44] LABS: Add Urine Microscopic? NO
[2020-10-22 20:55] LABS: Bilirubin Urine Neg (Negative); Blood Urine Neg (Negative); Glucose Urine UA 4+ (Normal); Ketones Urine Negative (Negative); Leukocyte Esterase Urine Negative (Negative); Nitrate Urine Negative (Negative); Protein Urine Neg (Negative); Specific Gravity, Urine 1.015 (1.005-1.030); Urine Appearance Clear (CLEAR); Urine Color Yellow (Yellow); Urobilinogen Urine Norm (Negative)
[2020-10-23] VITALS (13 sets, daily range): BP systolic 123–161; BP diastolic 75–86; PULSE 58–76; RESP 16–20; TEMP 36.4–36.6; O2SAT 93–97
[2020-10-23] MEDS: enoxaparin 40 mg/0.4 mL Syringe SUBCUT (03:16)
[2020-10-23 05:14] LABS: NT Pro B Type Natriuretic Pept 306 pg/mL (0-125)
[2020-10-23 06:22] LABS: Glucose Point of Care 308 mg/dL (70-110)
[2020-10-23] MEDS: aspirin 81 mg EC Tablet PO (08:19)
[2020-10-23] MEDS: lisinopril 20 mg Tablet PO (08:19)
[2020-10-23] MEDS: pantoprazole DR 40 mg Tablet PO (08:19)
[2020-10-23] MEDS: FUROsemide 40 mg Tablet PO (08:19)
[2020-10-23] MEDS: gabapentin 300 mg Capsule PO ×4 (08:19→21:10)
[2020-10-23] MEDS: dexamethasone 4 mg Tablet 6 MG PO ×3 (08:19→21:08)
[2020-10-23] MEDS: atorvastatin 40 mg Tablet 10 MG PO (08:19)
--- NOTE | 2020-10-23 09:43 | P.PN_ITS ---
Subjective Subjective: Interval history: Patient reports that his joint stiffness and pain much improved. Denies shortness of breath or chest pain. Saturates 93% on room air. Appetite and oral intake are good. His EF is 60%. Vitals/I&O/Wt Last Vital Signs Temp 97.7 F 10/23/20 08:00 Pulse 67 10/23/20 08:07 Resp 17 10/23/20 08:07 BP 158/81 10/23/20 08:00 Pulse Ox 93 10/23/20 08:07 10/22/20 10/23/20 10/23/20 22:59 06:59 14:59 Intake Total 250 / 750 480 / 1230 Output Total 800 / 800 Balance 250 / 750 -320 / 430 Weight last 48 hrs Weight 148.778 kg Physical Exam Const: COMMON NORMALS: no acute distress Resp: COMMON NORMALS: normal respiratory effort OTHER: Minimal left basilar Rales. Cardio: COMMON NORMALS: regular rate, regular rhythm and S2 normal heart sound present RATE: regular rate RHYTHM: regular rhythm HEART SOUNDS: S2 normal heart sound present OTHER: No lower extremity edema GI: COMMON NORMALS: Normal to inspection, nondistended, normoactive bowel sounds present, Soft to palpation and non-tender PALPATION: Yes Soft to palpation Neuro: COMMON NORMALS: no focal motor deficits Data : 10/22/20 03:45 10/22/20 03:45 Micro: Microbiology 10/22/20 21:14 Blood Culture - Preliminary Blood SPECIMEN COLLECTED 10/22/20 21:14 Blood Culture - Preliminary Blood SPECIMEN COLLECTED A&P Assessment and plan (1) Hip pain: Bilateral. Status: Acute (2) Pneumonia due to COVID-19 virus: Status: Acute (3) Hypoxemia: Status: Acute (4) Pleural effusion on left: Status: Acute (5) Osteoarthritis: Appears to have rheumatoid arthritis. Status: Acute (6) Chronic low back pain: Status: Acute Additional A&P Information Acute hypoxic respiratory failure secondary COVID-19 pneumonia He also has moderate left-sided pleural effusion Patient is not sure whether he carries diagnosis of CHF however he is taking Lasix I will start him on Decadron and remdesivir, stop IV fluids that were initiated in the ER On ambulation his oxygen saturation dropped to 85% as per nursing report He is afebrile, No PE identified, high D-dimer secondary to COVID-19 inflammation Would avoid antibiotics, procalcitonin 0.1, he is not septic Bilateral hip, shoulder, neck, bilateral hands pain. Patient has history of osteoarthritis, endorses history of trigger injections Pelvic x-ray official read is pending, will obtain ESR, my suspicion for septic joint is low at this point Tylenol for analgesia Physical therapy evaluation before discharge Type 2 diabetes Consistent carb diet, moderate sliding scale Bilateral lower extremity edema Unknown history of CHF, continue Lasix and hold hydrochlorothiazide Will obtain records from [facility] Highly suspected rheumatoid arthritis. Morbid obesity due to increased intake with BMI 47.1 Patient is full code Consistent carb cardiac diet DVT prophylaxis Lovenox PLAN: Continue steroids. Awaiting anti-CCP test. Will refer patient to rheumatology on discharge. Discussed with RT and we will get patient up and walking as his generalized joint pains improved. Continue Lasix. Patient may require retirement facility placement Attestations Medical Necessity Statement*: Patient with acute rheumatoid arthritis flareup and COVID-19 infection requires close inpatient monitoring and treatment until deemed safe for discharge. Coding Level of Care Code Acute Pickle Solution Maker for Paolag Fwd Diagnoses Hip pain M25.559 Pneumonia due to COVID-19 virus U07.1; J12.89 Hypoxemia R09.02 Pleural effusion on left J90 Osteoarthritis M19.90 Chronic low back pain M54.5; G89.29
--- NOTE | 2020-10-23 10:55 | PC.CHAP ---
Pastoral Care Encounter/Spiritual Assessment Type of Contact [] Declined dip brazier visit [] Patient/Family/Request visit [] Outpatient visit [] Follow-up visit [] Physician referral [] Code/Alert [] Routine visit [] Staff referral [] Actively dying [] Patient sleeping [] Family support [] [] Out of room [] Palliative care [] [] Receiving care in room [] Pre-surgical visit [] Trauma [] Long length of stay [] ICU visit [x] Other: Isolation Relational/Emotional Strength [] Patient feels connected with others/family/visitors/staff [] Distress [] Loneliness/isolation [] Abandonment Spirituality of Patient [] Person of Yarely [] Attends Synagogue of their Yarely [] Believes in Prayer [] Reads Bible or Latter Day materials [] There are Spiritual issues to be addressed [place] Interventions [] Prayer [] Active listening [] Non-anxious presence [] Spiritual/emotional support [] Crisis/trauma care [] Spiritual counseling [] Bereavement support [] Provided bereavement packet [] Provided Bible/devotional materials [] Provided toy/stuffed animal, coloring book to patient or family member [] Provided Communion [] Anointing/[place] [] Salvation [] Completed spiritual assessment [] Other: Impact on Illness or Injury [] Angry [] Fearful [] Anxious [] Often cries [] Exhaustion [] Unable to work [] Unable to attend adventist [] Unable to walk/stand [] Unable to read [] Unable to drive [] Unable to eat/drink [] Unable to sleep [] Unable to be with family [] Patient intubated [] Other: Summary Isolation Time spent with patient 5 mins
--- NOTE | 2020-10-23 12:16 | PC.NURSE ---
blood sugar 441 at 1200
[2020-10-23 12:17] LABS: Glucose Point of Care 441 mg/dL (70-110)
[2020-10-23 16:54] LABS: Glucose Point of Care 399 mg/dL (70-110)
[2020-10-23 16:54] LABS: Glucose Point of Care 420 mg/dL (70-110)
[2020-10-23 18:03] LABS: Glucose Point of Care 395 mg/dL (70-110)
[2020-10-23 20:22] LABS: Glucose Point of Care 350 mg/dL (70-110)
[2020-10-23] MEDS: insulin glargine 100 units/1 mL 30 UNIT SUBCUT (21:08)
[2020-10-24] VITALS (11 sets, daily range): BP systolic 139–160; BP diastolic 68–87; PULSE 53–78; RESP 18–20; TEMP 36.6–36.9; O2SAT 91–98
[2020-10-24] MEDS: enoxaparin 40 mg/0.4 mL Syringe SUBCUT (03:42)
[2020-10-24] MEDS: metoprolol succinate ER (24 HR) 100 mg Tablet PO (03:43)
[2020-10-24 05:45] LABS: Basophils % 0.1 %; Hematocrit 39.8 % (42.0-52.0); Hemoglobin 13.1 g/dL (11.7-16.6); Lymphocytes # 0.6 10^3/uL (0.8-4.8); Lymphocytes % 6.6 %; Mean Corpuscular HGB Conc 32.9 g/dL (30.0-36.0); Mean Corpuscular Hemoglobin 29.2 pg (28.0-34.0); Mean Corpuscular Volume 88.8 fL (80-94); Mean Platelet Volume 9.8 fL (7.4-10.4); Monocytes # 0.4 10^3/uL (0.2-0.9); Monocytes % 4.6 %; Neutrophils # 7.97 10^3/uL (1.8-7.7); Neutrophils % 88.1 %; Nucleated Red Blood Cells % 0 %; Platelet Count 167 10^3/cmm (130-400); Red Blood Count 4.48 10^6/uL (4.1-5.3); Red Cell Distribution Width 13.5 % (12.1-15.1); White Blood Count 9.1 10^3/uL (4.0-10.0)
[2020-10-24 05:54] LABS: Alanine Aminotransferase 14 U/L (0-41); Albumin Level 3.7 g/dL (3.5-5.2); Alkaline Phosphatase 49 IU/L (40-130); Anion Gap 13.9 (5-19); Aspartate Amino Transferase 13 U/L (0-40); Blood Urea Nitrogen 22 mg/dL (8-23); Calcium 8.6 mg/dL (8.5-10.5); Carbon Dioxide 28 mmol/L (22-29); Chloride 99 mmol/L (98-107); Creatinine Clr Calc Pharmacy 121.9646; Glucose 185 mg/dL (65-115); Magnesium 2.2 mg/dL (1.7-2.3); Osmolality Calculated 292 mOsm/kg (285-295); Potassium 3.9 mmol/L (3.5-5.1); Sodium 137 mmol/L (136-145); Total Bilirubin 0.2 mg/dL (0.15-1.2); Total Protein 6.7 g/dL (6.6-8.7)
[2020-10-24 06:38] LABS: Glucose Point of Care 219 mg/dL (70-110)
[2020-10-24] MEDS: gabapentin 300 mg Capsule PO ×4 (08:18→20:32)
[2020-10-24] MEDS: atorvastatin 40 mg Tablet 10 MG PO (08:18)
[2020-10-24] MEDS: aspirin 81 mg EC Tablet PO (08:18)
[2020-10-24] MEDS: pantoprazole DR 40 mg Tablet PO (08:18)
[2020-10-24] MEDS: FUROsemide 40 mg Tablet PO (08:18)
[2020-10-24] MEDS: dexamethasone 4 mg Tablet 6 MG PO ×2 (08:18→14:27)
[2020-10-24] MEDS: lisinopril 20 mg Tablet PO (08:18)
[2020-10-24 11:49] LABS: Glucose Point of Care 266 mg/dL (70-110)
--- NOTE | 2020-10-24 13:24 | P.PN_ITS ---
Subjective Subjective: Interval history: Patient appears slightly short of breath. He is frequently coughing but does not produce anything. He denies chest pain or abdominal pain. He saturates in the low 90s on room air. Reports that he is stiffness in the hands and joint pains completely gone. Vitals/I&O/Wt Last Vital Signs Temp 97.9 F 10/24/20 12:00 Pulse 78 10/24/20 12:00 Resp 20 H 10/24/20 12:00 BP 151/68 10/24/20 12:00 Pulse Ox 91 10/24/20 12:00 10/23/20 10/24/20 10/24/20 22:59 06:59 14:59 Intake Total 1000 / 1640 720 / 2360 520 / 520 Output Total 1600 / 1600 1000 / 2600 900 / 900 Balance -600 / 40 -280 / -240 -380 / -380 Physical Exam Const: COMMON NORMALS: no acute distress Resp: COMMON NORMALS: normal respiratory effort OTHER: Left basilar rhonchi Cardio: COMMON NORMALS: regular rate, regular rhythm and S2 normal heart sound present RATE: regular rate RHYTHM: regular rhythm HEART SOUNDS: S2 normal heart sound present OTHER: No lower extremity edema GI: COMMON NORMALS: Normal to inspection, nondistended, normoactive bowel sounds present, Soft to palpation and non-tender PALPATION: Yes Soft to palpation Neuro: COMMON NORMALS: no focal motor deficits Data : 10/24/20 04:15 10/24/20 04:15 Micro: Microbiology 10/21/20 22:48 Group A Streptococcus Rapid Screen - Final Throat 10/22/20 21:14 Blood Culture - Preliminary Blood NEGATIVE TO DATE 10/22/20 21:14 Blood Culture - Preliminary Blood NEGATIVE TO DATE A&P Assessment and plan (1) Hip pain: Bilateral. Status: Acute (2) Pneumonia due to COVID-19 virus: Left basilar pneumonia, highly suspected to be bacterial in origin. Status: Acute (3) Hypoxemia: Status: Acute (4) Pleural effusion on left: Status: Acute (5) Osteoarthritis: Appears to have rheumatoid arthritis. Status: Acute (6) Chronic low back pain: Status: Acute Additional A&P Information Acute hypoxic respiratory failure secondary COVID-19 pneumonia He also has moderate left-sided pleural effusion Patient is not sure whether he carries diagnosis of CHF however he is taking Lasix I will start him on Decadron and remdesivir, stop IV fluids that were initiated in the ER On ambulation his oxygen saturation dropped to 85% as per nursing report He is afebrile, No PE identified, high D-dimer secondary to COVID-19 inflammation Would avoid antibiotics, procalcitonin 0.1, he is not septic Bilateral hip, shoulder, neck, bilateral hands pain. Patient has history of osteoarthritis, endorses history of trigger injections Pelvic x-ray official read is pending, will obtain ESR, my suspicion for septic joint is low at this point Tylenol for analgesia Physical therapy evaluation before discharge Type 2 diabetes Consistent carb diet, moderate sliding scale Bilateral lower extremity edema Unknown history of CHF, continue Lasix and hold hydrochlorothiazide Will obtain records from [facility] Highly suspected rheumatoid arthritis. Morbid obesity due to increased intake with BMI 47.1 Patient is full code Consistent carb cardiac diet DVT prophylaxis Lovenox PLAN: Will decrease dexamethasone to 6 mg daily and add ceftriaxone for treatment of pneumonia. Continue with physical therapy. Attestations Medical Necessity Statement*: Patient with pneumonia and being symptomatic requires close inpatient monitoring and treatment till deemed safe for discharge. 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
[2020-10-24] MEDS: cefTRIAXone 2,000 MG in sodium chloride 0.9% (plus) 50 ML 100 MG IV (14:26)
[2020-10-24 14:38] LABS: Cyclic Citrullinated Peptide <16 UNITS
[2020-10-24 16:47] LABS: Glucose Point of Care 396 mg/dL (70-110)
[2020-10-24 20:26] LABS: Glucose Point of Care 326 mg/dL (70-110)
[2020-10-24] MEDS: insulin glargine 100 units/1 mL 30 UNIT SUBCUT (20:33)
[2020-10-25] VITALS (11 sets, daily range): BP systolic 127–159; BP diastolic 75–88; PULSE 50–63; RESP 16–18; TEMP 36.5–37.3; O2SAT 94–98
[2020-10-25] MEDS: enoxaparin 40 mg/0.4 mL Syringe SUBCUT (03:07)
[2020-10-25] MEDS: metoprolol succinate ER (24 HR) 100 mg Tablet PO (03:07)
[2020-10-25 05:40] LABS: Hematocrit 40.5 % (42.0-52.0); Hemoglobin 13.4 g/dL (11.7-16.6); Lymphocytes % 11.1 %; Mean Corpuscular HGB Conc 33.1 g/dL (30.0-36.0); Mean Corpuscular Hemoglobin 29.7 pg (28.0-34.0); Mean Corpuscular Volume 89.8 fL (80-94); Mean Platelet Volume 9.8 fL (7.4-10.4); Monocytes # 0.9 10^3/uL (0.2-0.9); Monocytes % 10.4 %; Neutrophils # 7.01 10^3/uL (1.8-7.7); Neutrophils % 78.1 %; Nucleated Red Blood Cells % 0 %; Platelet Count 165 10^3/cmm (130-400); Red Blood Count 4.51 10^6/uL (4.1-5.3); Red Cell Distribution Width 13.5 % (12.1-15.1)
[2020-10-25 06:14] LABS: Sodium 138 mmol/L (136-145)
[2020-10-25 06:15] LABS: Alanine Aminotransferase 16 U/L (0-41); Albumin Level 3.6 g/dL (3.5-5.2); Alkaline Phosphatase 51 IU/L (40-130); Anion Gap 14.8 (5-19); Aspartate Amino Transferase 15 U/L (0-40); Blood Urea Nitrogen 22 mg/dL (8-23); Calcium 8.6 mg/dL (8.5-10.5); Carbon Dioxide 29 mmol/L (22-29); Chloride 98 mmol/L (98-107); Creatinine Clr Calc Pharmacy 121.9646; Glucose 206 mg/dL (65-115); Magnesium 2.3 mg/dL (1.7-2.3); Osmolality Calculated 295 mOsm/kg (285-295); Potassium 3.8 mmol/L (3.5-5.1); Total Bilirubin 0.2 mg/dL (0.15-1.2); Total Protein 6.6 g/dL (6.6-8.7)
[2020-10-25 06:46] LABS: Glucose Point of Care 204 mg/dL (70-110)
[2020-10-25] MEDS: dexamethasone 4 mg Tablet 6 MG PO (08:51)
[2020-10-25] MEDS: pantoprazole DR 40 mg Tablet PO (08:51)
[2020-10-25] MEDS: FUROsemide 40 mg Tablet PO (08:51)
[2020-10-25] MEDS: atorvastatin 40 mg Tablet 10 MG PO (08:52)
[2020-10-25] MEDS: gabapentin 300 mg Capsule PO ×4 (08:52→22:03)
[2020-10-25] MEDS: aspirin 81 mg EC Tablet PO (08:52)
[2020-10-25] MEDS: lisinopril 20 mg Tablet PO (08:52)
[2020-10-25 10:50] LABS: Glucose Point of Care 206 mg/dL (70-110)
--- NOTE | 2020-10-25 11:44 | PC.NURSE ---
Patient states that he does not know when his Sher catheter was placed. He thins it was place on but is not completely sure. Will Manage Catheter. Dr. Alcocer made aware at this time of unclear documentation.
--- NOTE | 2020-10-25 12:17 | PM.PN ---
Subjective Subjective: Interval history: Patient reports doing okay but does not feel strong enough to be dismissed home. Reports he needs to make sure that his diarrhea completely resolved. He had 3 diarrheal bowel movements yesterday but none so far today. He is generalized joint stiffness and discomfort that has been going on for at least couple of years is much improved. He denies shortness of breath or chest pain. He is saturating 95% on room air. He does not appear to be coughing as much. Vitals/I&O/Wt Last Vital Signs Temp 97.7 F 10/25/20 08:00 Pulse 56 L 10/25/20 08:45 Resp 18 10/25/20 08:45 BP 152/79 10/25/20 08:00 Pulse Ox 95 10/25/20 08:45 10/24/20 10/25/20 10/25/20 22:59 06:59 14:59 Intake Total 440 / 1200 340 / 340 Output Total 2050 / 2950 600 / 3550 1000 / 1000 Balance -1610 / -1750 -600 / -2350 -660 / -660 Physical Exam Const: COMMON NORMALS: no acute distress Resp: COMMON NORMALS: normal respiratory effort OTHER: Left basilar rhonchi Cardio: COMMON NORMALS: regular rate, regular rhythm and S2 normal heart sound present RATE: regular rate RHYTHM: regular rhythm HEART SOUNDS: S2 normal heart sound present OTHER: No lower extremity edema GI: COMMON NORMALS: Normal to inspection, nondistended, normoactive bowel sounds present, Soft to palpation and non-tender PALPATION: Yes Soft to palpation Neuro: COMMON NORMALS: no focal motor deficits Urinary Catheter Management^: Sher: Cath Placed During This Visit: yes Reason for Continuing Indwelling Catheter: Acute Urinary Retention or Obstruction Urinary Catheter Date of Insertion: 10/23/20 Data : 10/25/20 05:12 10/25/20 05:12 Micro: Microbiology 10/21/20 22:48 Group A Streptococcus Rapid Screen - Final Throat A&P Assessment and plan (1) Hip pain: Bilateral. Status: Acute (2) Pneumonia due to COVID-19 virus: Left basilar pneumonia, highly suspected to be bacterial in origin. Status: Acute (3) Hypoxemia: Status: Acute (4) Pleural effusion on left: Status: Acute (5) Osteoarthritis: Appears to have rheumatoid arthritis. Status: Acute (6) Chronic low back pain: Status: Acute Additional A&P Information Acute hypoxic respiratory failure secondary COVID-19 pneumonia He also has moderate left-sided pleural effusion Patient is not sure whether he carries diagnosis of CHF however he is taking Lasix I will start him on Decadron and remdesivir, stop IV fluids that were initiated in the ER On ambulation his oxygen saturation dropped to 85% as per nursing report He is afebrile, No PE identified, high D-dimer secondary to COVID-19 inflammation Would avoid antibiotics, procalcitonin 0.1, he is not septic Bilateral hip, shoulder, neck, bilateral hands pain. Patient has history of osteoarthritis, endorses history of trigger injections Pelvic x-ray official read is pending, will obtain ESR, my suspicion for septic joint is low at this point Tylenol for analgesia Physical therapy evaluation before discharge Type 2 diabetes Consistent carb diet, moderate sliding scale Bilateral lower extremity edema Unknown history of CHF, continue Lasix and hold hydrochlorothiazide Will obtain records from [facility] Highly suspected rheumatoid arthritis. Morbid obesity due to increased intake with BMI 47.1 Patient is full code Consistent carb cardiac diet DVT prophylaxis Lovenox PLAN: We will continue current monitoring and treatment including physical therapy. Obtain stool studies if patient's diarrhea recurs. Attestations Medical Necessity Statement*: Patient with COVID-19 infection and diarrhea requires close inpatient monitoring and treatment until deemed safe for discharge. 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
[2020-10-25] MEDS: cefTRIAXone 2,000 MG in sodium chloride 0.9% (plus) 50 ML 100 MG IV (13:32)
[2020-10-25 16:48] LABS: Glucose Point of Care 316 mg/dL (70-110)
--- NOTE | 2020-10-25 16:48 | PC.NURSE ---
Notified Dr. Alcocer that patient's sister Megha wants him to call her.
[2020-10-25 20:31] LABS: Glucose Point of Care 369 mg/dL (70-110)
[2020-10-25] MEDS: HYDROcodone-acetaminophen 5-325 mg Tablet 1 TAB PO (22:03)
[2020-10-25] MEDS: insulin glargine 100 units/1 mL 30 UNIT SUBCUT (22:04)
[2020-10-25] MEDS: zolpidem 5 mg Tablet PO (22:04)
[2020-10-26] VITALS (11 sets, daily range): BP systolic 135–161; BP diastolic 76–96; PULSE 51–69; RESP 15–19; TEMP 36.3–37.1; O2SAT 92–97
--- NOTE | 2020-10-26 01:19 | PC.NURSE ---
During shift assessment this nurse noticed patients right anterior thigh is red, warm, and swollen. Patient reports no pain at site. Area has been outlined. Physician was notified.
[2020-10-26] MEDS: enoxaparin 40 mg/0.4 mL Syringe SUBCUT (03:51)
[2020-10-26 05:37] LABS: Alanine Aminotransferase 19 U/L (0-41); Albumin Level 3.5 g/dL (3.5-5.2); Alkaline Phosphatase 48 IU/L (40-130); Anion Gap 13.5 (5-19); Aspartate Amino Transferase 17 U/L (0-40); Blood Urea Nitrogen 19 mg/dL (8-23); Calcium 8.3 mg/dL (8.5-10.5); Carbon Dioxide 29 mmol/L (22-29); Chloride 98 mmol/L (98-107); Creatinine Clr Calc Pharmacy 121.9646; Glucose 134 mg/dL (65-115); Magnesium 2.3 mg/dL (1.7-2.3); Osmolality Calculated 288 mOsm/kg (285-295); Potassium 3.5 mmol/L (3.5-5.1); Sodium 137 mmol/L (136-145); Total Bilirubin 0.3 mg/dL (0.15-1.2); Total Protein 6.5 g/dL (6.6-8.7)
[2020-10-26 07:01] LABS: Glucose Point of Care 112 mg/dL (70-110)
[2020-10-26 08:18] LABS: Eosinophils % 0.3 %; Hematocrit 41.4 % (42.0-52.0); Hemoglobin 13.7 g/dL (11.7-16.6); Lymphocytes # 1.1 10^3/uL (0.8-4.8); Lymphocytes % 15.2 %; Mean Corpuscular HGB Conc 33.1 g/dL (30.0-36.0); Mean Corpuscular Hemoglobin 29.5 pg (28.0-34.0); Mean Platelet Volume 9.4 fL (7.4-10.4); Monocytes # 0.8 10^3/uL (0.2-0.9); Neutrophils # 5.35 10^3/uL (1.8-7.7); Neutrophils % 72.7 %; Nucleated Red Blood Cells % 0 %; Platelet Count 153 10^3/cmm (130-400); Red Blood Count 4.65 10^6/uL (4.1-5.3); Red Cell Distribution Width 13.4 % (12.1-15.1); White Blood Count 7.4 10^3/uL (4.0-10.0)
[2020-10-26] MEDS: dexamethasone 4 mg Tablet 6 MG PO (08:30)
[2020-10-26] MEDS: FUROsemide 40 mg Tablet PO (08:30)
[2020-10-26] MEDS: aspirin 81 mg EC Tablet PO (08:30)
[2020-10-26] MEDS: pantoprazole DR 40 mg Tablet PO (08:30)
[2020-10-26] MEDS: gabapentin 300 mg Capsule PO ×4 (08:30→21:37)
[2020-10-26] MEDS: lisinopril 20 mg Tablet PO (08:30)
[2020-10-26] MEDS: atorvastatin 40 mg Tablet 10 MG PO (08:30)
--- NOTE | 2020-10-26 08:30 | PC.NURSE ---
Patient was able to feed himself yesterday without complaints. Patient asked this grant writer to help him eat this morning. This grant writer fed patient his eggs and then this grant writer encouraged patient to feed himself. Patient started feeding himself the rest of his breakfast.
[2020-10-26 10:54] LABS: Glucose Point of Care 120 mg/dL (70-110)
--- NOTE | 2020-10-26 11:07 | PM.PN ---
Subjective Subjective: Interval history: Patient reports being weak. Denies shortness of breath or chest pain. Saturates 95% on room air. Does not appear to be coughing anymore. Vitals/I&O/Wt Last Vital Signs Temp 98.6 F 10/26/20 08:00 Pulse 56 L 10/26/20 08:55 Resp 18 10/26/20 08:55 BP 149/78 10/26/20 08:00 Pulse Ox 95 10/26/20 08:55 10/25/20 10/26/20 10/26/20 22:59 06:59 14:59 Intake Total 220 / 850 600 / 600 Output Total 1100 / 2950 1200 / 4150 Balance -880 / -2100 -1200 / -3300 600 / 600 Physical Exam Const: COMMON NORMALS: no acute distress Resp: COMMON NORMALS: normal respiratory effort OTHER: Minimal left basilar Rales. Cardio: COMMON NORMALS: regular rate, regular rhythm and S2 normal heart sound present RATE: regular rate RHYTHM: regular rhythm HEART SOUNDS: S2 normal heart sound present OTHER: No lower extremity edema GI: COMMON NORMALS: Normal to inspection, nondistended, normoactive bowel sounds present, Soft to palpation and non-tender PALPATION: Yes Soft to palpation Neuro: COMMON NORMALS: no focal motor deficits Urinary Catheter Management^: Sher: Cath Placed During This Visit: yes Reason for Continuing Indwelling Catheter: Acute Urinary Retention or Obstruction Urinary Catheter Date of Insertion: 10/23/20 Data : 10/26/20 07:50 10/26/20 04:38 Micro: Microbiology 10/25/20 16:18 Occult Blood (FIT) - Final Stool Routine Collection A&P Assessment and plan (1) Hip pain: Bilateral. Status: Acute (2) Pneumonia due to COVID-19 virus: Left basilar pneumonia, highly suspected to be bacterial in origin. Status: Acute (3) Hypoxemia: Status: Acute (4) Pleural effusion on left: This appears to be parapneumonic secondary to left basilar pneumonia. Status: Acute (5) Osteoarthritis: Appears to have rheumatoid arthritis. Status: Acute (6) Chronic low back pain: Status: Acute Additional A&P Information Acute hypoxic respiratory failure secondary COVID-19 pneumonia He also has moderate left-sided pleural effusion Patient is not sure whether he carries diagnosis of CHF however he is taking Lasix I will start him on Decadron and remdesivir, stop IV fluids that were initiated in the ER On ambulation his oxygen saturation dropped to 85% as per nursing report He is afebrile, No PE identified, high D-dimer secondary to COVID-19 inflammation Would avoid antibiotics, procalcitonin 0.1, he is not septic Bilateral hip, shoulder, neck, bilateral hands pain. Patient has history of osteoarthritis, endorses history of trigger injections Pelvic x-ray official read is pending, will obtain ESR, my suspicion for septic joint is low at this point Tylenol for analgesia Physical therapy evaluation before discharge Type 2 diabetes Consistent carb diet, moderate sliding scale Bilateral lower extremity edema Unknown history of CHF, continue Lasix and hold hydrochlorothiazide Will obtain records from [facility] Highly suspected rheumatoid arthritis. Morbid obesity due to increased intake with BMI 47.1 Patient is full code Consistent carb cardiac diet DVT prophylaxis Lovenox PLAN: Continue current monitoring and treatment including dexamethasone and ceftriaxone. Discussed with patient's sister yesterday and updated. Depending on patient's progress we will make decision regarding placement to nursing facility for further rehabilitation versus discharging patient back to assisted living with home health/physical therapy Attestations Medical Necessity Statement*: Elderly gentleman with COVID-19 infection and what appears to be bacterial pneumonia as well as generalized weakness requires inpatient monitoring and treatment until deemed safe for discharge. Coding Level of Care Code Acute Station Worker for Dilma Thompson Diagnoses Hip pain M25.559 Pneumonia due to COVID-19 virus U07.1; J12.89 Hypoxemia R09.02 Pleural effusion on left J90 Osteoarthritis M19.90 Chronic low back pain M54.5; G89.29
[2020-10-26] MEDS: cefTRIAXone 2,000 MG in sodium chloride 0.9% (plus) 50 ML 100 MG IV (13:36)
--- NOTE | 2020-10-26 15:30 | PC.NURSE ---
Sher Catheter removed at this time. Patient tolerated well. 600 output
[2020-10-26 17:18] LABS: Glucose Point of Care 433 mg/dL (70-110)
--- NOTE | 2020-10-26 19:00 | PC.NURSE ---
Report to Sofía GILMAN
[2020-10-26 20:29] LABS: Glucose Point of Care 378 mg/dL (70-110)
[2020-10-26] MEDS: insulin glargine 100 units/1 mL 30 UNIT SUBCUT (21:38)
[2020-10-27] VITALS (8 sets, daily range): BP systolic 135–154; BP diastolic 69–80; PULSE 54–73; RESP 17–18; TEMP 36.1–36.6; O2SAT 90–97
--- NOTE | 2020-10-27 00:07 | PC.NURSE ---
flooded the whole bed
[2020-10-27] MEDS: enoxaparin 40 mg/0.4 mL Syringe SUBCUT (03:51)
[2020-10-27 06:38] LABS: Glucose Point of Care 163 mg/dL (70-110)
[2020-10-27] MEDS: dexamethasone 4 mg Tablet 6 MG PO (08:30)
[2020-10-27] MEDS: lisinopril 20 mg Tablet PO (08:31)
[2020-10-27] MEDS: atorvastatin 40 mg Tablet 10 MG PO (08:31)
[2020-10-27] MEDS: aspirin 81 mg EC Tablet PO (08:32)
[2020-10-27] MEDS: pantoprazole DR 40 mg Tablet PO (08:32)
[2020-10-27] MEDS: FUROsemide 40 mg Tablet PO (08:32)
[2020-10-27] MEDS: gabapentin 300 mg Capsule PO ×2 (08:32→12:15)
[2020-10-27 11:02] LABS: Glucose Point of Care 231 mg/dL (70-110)
[2020-10-27] MEDS: cefTRIAXone 2,000 MG in sodium chloride 0.9% (plus) 50 ML 100 MG IV (12:46)
--- NOTE | 2020-10-27 13:46 | P.PN_ITS ---
Subjective Subjective: Interval history: Patient reports that he continues to be weak and he thinks that his weakness is even worse than when he came in. Reports that his upper extremities and lower extremities are similarly weak. He denies shortness of breath or chest pain. Vitals/I&O/Wt Last Vital Signs Temp 97.8 F 10/27/20 11:32 Pulse 73 10/27/20 11:32 Resp 18 10/27/20 11:32 BP 154/74 10/27/20 11:32 Pulse Ox 95 10/27/20 11:32 10/26/20 10/27/20 10/27/20 22:59 06:59 14:59 Intake Total 340 / 990 120 / 1110 240 / 240 Output Total 600 / 1450 Balance -260 / -460 120 / -340 240 / 240 Physical Exam Const: COMMON NORMALS: no acute distress Resp: COMMON NORMALS: normal respiratory effort and clear to auscultation bilaterally AUSCULTATION: clear to auscultation bilaterally Cardio: COMMON NORMALS: regular rate, regular rhythm and S2 normal heart sound present RATE: regular rate RHYTHM: regular rhythm HEART SOUNDS: S2 n ormal heart sound present OTHER: No lower extremity edema GI: COMMON NORMALS: Normal to inspection, nondistended, normoactive bowel sounds present, Soft to palpation and non-tender PALPATION: Yes Soft to palpation Neuro: COMMON NORMALS: no focal motor deficits Urinary Catheter Management^: Sher: Cath Placed During This Visit: yes, but has since been removed by the nurse Reason for Continuing Indwelling Catheter: Decision to DC Catheter Urinary Catheter Date of Insertion: 10/23/20 Date Urinary Catheter Removed: 10/26/20 Time Urinary Catheter Discontinued: 15:30 Data : 10/26/20 07:50 10/26/20 04:38 A&P Assessment and plan (1) Hip pain: Bilateral. Status: Acute (2) Pneumonia due to COVID-19 virus: Left basilar pneumonia, highly suspected to be bacterial in origin. Status: Acute (3) Hypoxemia: Status: Acute (4) Pleural effusion on left: This appears to be parapneumonic secondary to left basilar pneumonia. Status: Acute (5) Osteoarthritis: Appears to have rheumatoid arthritis. Status: Acute (6) Chronic low back pain: Status: Acute Additional A&P Information Acute hypoxic respiratory failure secondary COVID-19 pneumonia He also has moderate left-sided pleural effusion Patient is not sure whether he carries diagnosis of CHF however he is taking Lasix I will start him on Decadron and remdesivir, stop IV fluids that were initiated in the ER On ambulation his oxygen saturation dropped to 85% as per nursing report He is afebrile, No PE identified, high D-dimer secondary to COVID-19 inflammation Would avoid antibiotics, procalcitonin 0.1, he is not septic Bilateral hip, shoulder, neck, bilateral hands pain. Patient has history of osteoarthritis, endorses history of trigger injections Pelvic x-ray official read is pending, will obtain ESR, my suspicion for septic joint is low at this point Tylenol for analgesia Physical therapy evaluation before discharge Type 2 diabetes Consistent carb diet, moderate sliding scale Bilateral lower extremity edema Unknown history of CHF, continue Lasix and hold hydrochlorothiazide Will obtain records from [facility] Highly suspected rheumatoid arthritis. Morbid obesity due to increased intake with BMI 47.1 Patient is full code Consistent carb cardiac diet DVT prophylaxis Lovenox PLAN: We will continue ceftriaxone but discontinue dexamethasone at this point. Steroid induced myopathy cannot be completely ruled out although felt unlikely. Continue physical therapy. I think patient will benefit from longterm facility placement and patient agreed. Discussed with social services manager to initiate arrangements. Attestations Medical Necessity Statement*: Patient with pneumonia and generalized weakness requires close inpatient monitoring and treatment until deemed safe for discharge. Coding Level of Care Code Acute Band Straightener for g Fwd Diagnoses Hip pain M25.559 Pneumonia due to COVID-19 virus U07.1; J12.89 Hypoxemia R09.02 Pleural effusion on left J90 Osteoarthritis M19.90 Chronic low back pain M54.5; G89.29
--- NOTE | 2020-10-27 15:01 | P.DS_ITS ---
Discharge Providers Date of Admission: 10/22/20 13:45 Date of Discharge: October 27, 2020 Attending Provider at Admission: Seven Luevano MD Attending Provider at Discharge: Ethan Alcocer MD Primary Care Provider: Rambo Melendez DO Diagnoses at Discharge Discharge Diagnosis (1) Hip pain: Status: Acute Permanent problem details: Due to underlying osteoarthritis. No evidence of fracture. (2) Pneumonia due to COVID-19 virus: Status: Acute Permanent problem details: With highly suspected secondary bacterial infection involving left lower lobe. (3) Hypoxemia: Status: Acute (4) Pleural effusion on left: Status: Acute Permanent problem details: Appears to be parapneumonic. (5) Osteoarthritis: Status: Acute Permanent problem details: Underlying inflammatory arthritis like rheumatoid arthritis is suspected. (6) Chronic low back pain: Status: Acute (7) Generalized weakness: Status: Acute Permanent problem details: Pneumonia.Most likely secondary to deconditioning. steroid induced myopathy felt unlikely but cannot be completely ruled out Reason for Visit Reason for Visit: PAIN ALL OVER Hospital Course Hospital Course Patient presented with generalized weakness and hypoxemia secondary to pneumonia. Patient appears to have COVID-19 pneumonia with secondary bacterial pneumonia involving left lower lobe. Patient was treated with dexamethasone and ceftriaxone and his breathing gradually improved. Patient is currently saturating in the mid 90s on room air. Reports that he continues to have generalized weakness involving upper extremities and lower extremities therefore decision was made to proceed with senior care facility placement for rehabilitation and patient agreed. Patient has been having bilateral hands stiffness for at least couple of years and initially rheumatoid arthritis was suspected. Anti-CCP came back normal. Patient was treated with steroids and his stiffness actually improved so some underlying inflammatory arthritis cannot be completely ruled out and technically could be advanced osteoarthritis. I will request outpatient follow-up with rheumatology service. From the medical standpoint patient appears stable and we will go ahead and dismiss patient to rehabilitation facility today as placement was arranged. I will continue with aspirin but change to 81 mg daily and add Protonix for GI protection. Physical Exam Narrative: EXAM NARRATIVE: As mentioned in my note earlier today. Urinary Catheter Management^: Sher: Cath Placed During This Visit: yes, but has since been removed by the nurse Reason for Continuing Indwelling Catheter: Decision to DC Catheter Urinary Catheter Date of Insertion: 10/23/20 Date Urinary Catheter Removed: 10/26/20 Time Urinary Catheter Discontinued: 15:30 Discharge Data Data Completed and Pending: Completed Studies During Hospitalization Category Date Time Status CT angio chest PE protcl [id number] Stat Cat Scan 10/21/20 23:39 Completed XR chest 1V jessica ble [id number] Stat Exams 10/21/20 23:11 Completed XR pelvis 1-2V* 7 2170 Stat Exams 10/21/20 22:40 Completed CV echo complete* [id number] Routine Ultrasound 10/22/20 11:25 Completed Pending at discharge Category Date Time Status Blood Culture Sta t Lab 10/21/20 23:40 Results Clostridioides Di fficile PCR Routin e Lab 10/24/20 13:15 Results Enteric Bacterial Panel by PCR Rout ine Lab 10/24/20 13:15 Results Immunochemical Fe marisabel OCB Routine Lab 10/24/20 13:15 Results Miscellaneous Sujey t Routine Lab 10/22/20 21:14 Received Labs from last 24 hours 10/27/20 10/27/20 10/26/20 10:49 06:32 20:23 POC Glucose 231 163 378 10/26/20 17:00 POC Glucose 433 Vitals: Last Vital Signs Temp 97.8 F 10/27/20 11:32 Pulse 73 10/27/20 11:32 Resp 18 10/27/20 11:32 BP 154/74 10/27/20 11:32 Pulse Ox 95 10/27/20 11:32 Discharge Plan Discharge Patient Disposition: Xfer SNF Condition: Stable Prescriptions: New aspirin 81 mg Tablet,Delayed Release (Dr/Ec) 81 mg PO DAILY Qty: 30 RF: 0 pantoprazole 40 mg Tablet,Delayed Release (Dr/Ec) 40 mg PO DAILY Qty: 30 RF: 0 cefdinir 300 mg capsule 300 mg PO BID 5 Days Qty: 10 RF: 0 Continued cyclobenzaprine 10 mg Tablet 10 mg PO TID PRN (Reason: Spasms) RF: 0 Abreva 10 % Cream 1 applic TOPICAL 5XD RF: 0 diltiazem HCl 180 mg Capsule,Extended Release 24 Hr 180 mg PO DAILY RF: 0 atorvastatin 10 mg Tablet 10 mg PO DAILY RF: 0 lisinopril 20 mg Tablet 20 mg PO DAILY RF: 0 glipizide 10 mg Tablet 10 mg PO BID RF: 0 Colace 50 mg Capsule 50 mg PO DAILY PRN (Reason: Constipation) RF: 0 metformin 1,000 mg Tablet 1,000 mg PO BID RF: 0 Debrox 6.5 % Drops 5 drp OTIC (EAR) DAILY RF: 0 garlic Capsule 1,000 mg PO BID RF: 0 gabapentin 300 mg Capsule 300 mg PO QID RF: 0 hydrochlorothiazide 25 mg Tablet 25 mg PO DAILY RF: 0 Lasix 20 mg Tablet 20 mg PO DAILY RF: 0 albuterol 90 mcg/actuation Aerosol 90 mcg INHALATION Q4H PRN (Reason: Shortness Of Breath) RF: 0 Vitamin D2 1,250 mcg (50,000 unit) Capsule 1,250 mcg PO DAILY RF: 0 pioglitazone 30 mg Tablet 30 mg PO DAILY RF: 0 naproxen 500 mg Tablet 500 mg PO BID PRN (Reason: Pain) RF: 0 Vitamin D3 25 mcg (1,000 unit) Capsule 25 mcg PO DAILY RF: 0 potassium gluconate 595 mg (99 mg) Tablet 595 mg PO DAILY RF: 0 diclofenac sodium 1 % Gel 2 g TOPICAL QID RF: 0 Anoro Ellipta 62.5-25 mcg/actuation Blister With Device 1 inh INHALATION DAILY RF: 0 Anoro Ellipta 62.5-25 mcg/actuation Blister With Device 1 inh INHALATION DAILY RF: 0 metoprolol succinate 100 mg Capsule,Sprinkle,Er 24hr 100 mg PO Q24H RF: 0 Discontinued aspirin 325 mg Tablet 325 mg PO DAILY RF: 0 Discharge Orders: Discharge Order (Routine); Ordered 10/27/20 Ordered By: Ethan Alcocer Referrals: [facility] [Outside] Rambo Melendez DO [Primary Care Provider] - 4-7 days Vladislav Coppola MD [Physician] - 1 week Discharge Diet: Diabetic Discharge Activity: Increase activity as tolerated Activity Restrictions/Additional Instructions: Please call your doctor or present to emergency department if your condition worsens or you develop diarrhea, lightheadedness, fatigue or see blood in your stool or black stool. Please keep blood sugar, blood pressure and heart rate log 3 times daily to present to primary care physician next visit. Patient to continue with physical and occupational therapy. Patient to see medical transcriptionist earliest possible. Discharge Attestations Time Spent in Discharge Care*: less than 30 min Quality Metrics Clinical Quality Measures During this hospital stay, did patient experience: None Coding Level of Care Code Acute Merchandise Director for g Fwd Diagnoses Hip pain M25.559 Pneumonia due to COVID-19 virus U07.1; J12.89 Hypoxemia R09.02 Pleural effusion on left J90 Osteoarthritis M19.90 Chronic low back pain M54.5; G89.29 Generalized weakness R53.1
[2020-10-27 16:40] LABS: Glucose Point of Care 327 mg/dL (70-110)
== END 2020-10-27 17:00 | disposition skilled nursing facility (03) | DRG 177 ==
LOC: ER 10-22 02:06 → ICU 10-22 03:05 → MEDSURG 10-23 00:26
PROVIDERS: Admitting Provider Internal Medicine; Emergency Provider Emergency Medicine; PCP Family Medicine; Visit Provider Internal Medicine
DX: U07.1 COVID-19 (principal); J12.89 Other viral pneumonia; J15.9 Unspecified bacterial pneumonia; J96.01 Acute respiratory failure with hypoxia; J90 Pleural effusion, not elsewhere classified; Z68.42 Body mass index [BMI] 45.0-49.9, adult; Z86.718 Personal history of other venous thrombosis and embolism; G47.30 Sleep apnea, unspecified; M25.552 Pain in left hip; M25.551 Pain in right hip; G89.29 Other chronic pain; M54.5 Low back pain; E11.9 Type 2 diabetes mellitus without complications; I10 Essential (primary) hypertension; M06.9 Rheumatoid arthritis, unspecified; Z87.891 Personal history of nicotine dependence; R32 Unspecified urinary incontinence; E66.01 Morbid (severe) obesity due to excess calories; R53.1 Weakness; R60.0 Localized edema; Z79.84 Long term (current) use of oral hypoglycemic drugs; Z79.51 Long term (current) use of inhaled steroids
CPT/HCPCS: 12345; 36415; 36416; 36600; 71045; 71275; 72170; 80048; 80053; 81003; 82274; 82803; 82962; 83605; 83735; 83880; 84145; 84484; 85025; 85378; 85384; 85610; 85651; 85730; 86140; 86200; 87040; 87081; 87426; 87493; 87506; 87804; 87880; 93005; 93306; 96372; 96375; 97110; 97116; 97162; 97530; 99282; G0378; J0131; J0696; J1100; J1650; J1815 ×2; J1885; J2270; J2405; J7030; J8540; Q9967

== ENCOUNTER → 2021-02-18 10:47 | Outpatient (BNVA) | payer MEDICARE, MEDICAID, SELFPAY | PROVIDERS: PCP Family Medicine; Referring Provider Nurse Practitioner Family; Visit Provider Internal Medicine | DX: E11.40 Type 2 diabetes mellitus with diabetic neuropathy, unspecified (principal); E78.5 Hyperlipidemia, unspecified | CPT/HCPCS: 99205 ==

== ENCOUNTER → 2021-07-15 13:13 | Outpatient (BNVA) | payer MEDICARE, MEDICAID, SELFPAY | PROVIDERS: PCP Family Medicine; Referring Provider Nurse Practitioner Family; Visit Provider Orthopaedic Surgery | DX: M25.512 Pain in left shoulder (principal); M25.511 Pain in right shoulder | CPT/HCPCS: 73030 ==

== ENCOUNTER → 2021-10-27 09:04 | Outpatient (BNVA) | payer MEDICARE, MEDICAID, SELFPAY | PROVIDERS: PCP Family Medicine; Visit Provider Internal Medicine | DX: E11.40 Type 2 diabetes mellitus with diabetic neuropathy, unspecified (principal); E78.5 Hyperlipidemia, unspecified; Z79.4 Long term (current) use of insulin; Z79.84 Long term (current) use of oral hypoglycemic drugs | CPT/HCPCS: 99214 ==

== ENCOUNTER → 2022-01-20 08:59 | Outpatient (BNVA) | payer MEDICARE, MEDICAID, SELFPAY | PROVIDERS: PCP Family Medicine; Visit Provider Internal Medicine | DX: E11.40 Type 2 diabetes mellitus with diabetic neuropathy, unspecified (principal); E78.5 Hyperlipidemia, unspecified; Z79.84 Long term (current) use of oral hypoglycemic drugs | CPT/HCPCS: 99214 ==

== ENCOUNTER → 2022-04-28 10:36 | Outpatient (BNVA) | payer MEDICARE, MEDICAID, SELFPAY | PROVIDERS: PCP Family Medicine; Visit Provider Internal Medicine | DX: E11.40 Type 2 diabetes mellitus with diabetic neuropathy, unspecified (principal); E78.5 Hyperlipidemia, unspecified; Z79.84 Long term (current) use of oral hypoglycemic drugs; Z87.891 Personal history of nicotine dependence | CPT/HCPCS: 99214 ==

== ENCOUNTER → 2022-07-28 13:54 | Outpatient (BNVA) | payer MEDICARE, MEDICAID, SELFPAY | PROVIDERS: PCP Family Medicine; Visit Provider Internal Medicine | DX: E78.5 Hyperlipidemia, unspecified (principal); E11.40 Type 2 diabetes mellitus with diabetic neuropathy, unspecified; Z79.84 Long term (current) use of oral hypoglycemic drugs | CPT/HCPCS: 99214 ==

== ENCOUNTER → 2022-10-27 14:59 | Outpatient (BNVA) | payer MEDICARE, MEDICAID, SELFPAY | PROVIDERS: PCP Family Medicine; Visit Provider Internal Medicine | DX: E11.40 Type 2 diabetes mellitus with diabetic neuropathy, unspecified (principal); E78.5 Hyperlipidemia, unspecified; Z79.84 Long term (current) use of oral hypoglycemic drugs | CPT/HCPCS: 99214 ==

== ENCOUNTER → 2023-02-21 14:10 | Outpatient (BNVA) | payer MEDICARE, MEDICAID, SELFPAY | PROVIDERS: PCP Family Medicine; Visit Provider Internal Medicine | DX: E11.40 Type 2 diabetes mellitus with diabetic neuropathy, unspecified (principal); E78.5 Hyperlipidemia, unspecified; Z79.84 Long term (current) use of oral hypoglycemic drugs; Z79.890 Hormone replacement therapy | CPT/HCPCS: 99214 ==

== ENCOUNTER → 2023-05-24 08:18 | Outpatient (BNVA) | payer MEDICARE, MEDICAID, SELFPAY | PROVIDERS: PCP Family Medicine; Visit Provider Nurse Practitioner Family | DX: L57.0 Actinic keratosis (principal); L57.8 Other skin changes due to chronic exposure to nonionizing radiation; L21.8 Other seborrheic dermatitis; L85.3 Xerosis cutis; L81.4 Other melanin hyperpigmentation; D22.5 Melanocytic nevi of trunk; Z71.89 Other specified counseling; L82.1 Other seborrheic keratosis | CPT/HCPCS: 17000; 17003; 99214 ==

== ENCOUNTER → 2023-08-24 11:09 | Outpatient (BNVA) | payer MEDICARE, MEDICAID, SELFPAY | PROVIDERS: PCP Family Medicine; Visit Provider Internal Medicine | DX: E78.5 Hyperlipidemia, unspecified; E11.40 Type 2 diabetes mellitus with diabetic neuropathy, unspecified; Z79.84 Long term (current) use of oral hypoglycemic drugs | CPT/HCPCS: 99214 ==

== ENCOUNTER → 2023-11-24 09:00 | Outpatient (BNVA) | payer MEDICARE, MEDICAID, SELFPAY | PROVIDERS: PCP Family Medicine; Visit Provider Nurse Practitioner Family | DX: L57.0 Actinic keratosis (principal); L57.8 Other skin changes due to chronic exposure to nonionizing radiation; L21.8 Other seborrheic dermatitis; L85.3 Xerosis cutis; D18.01 Hemangioma of skin and subcutaneous tissue; D22.5 Melanocytic nevi of trunk; Z71.89 Other specified counseling; K13.0 Diseases of lips | CPT/HCPCS: 17000; 99214 ==

== ENCOUNTER → 2024-02-27 09:06 | Outpatient (BNVA) | payer MEDICARE, MEDICAID, SELFPAY | PROVIDERS: PCP Family Medicine; Visit Provider Internal Medicine | DX: E78.5 Hyperlipidemia, unspecified; E11.40 Type 2 diabetes mellitus with diabetic neuropathy, unspecified; Z79.84 Long term (current) use of oral hypoglycemic drugs | CPT/HCPCS: 99214 ==

== ENCOUNTER → 2024-06-06 09:45 | Outpatient (BNVA) | payer MEDICARE, MEDICAID, SELFPAY | PROVIDERS: PCP Family Medicine; Visit Provider Internal Medicine | DX: E78.5 Hyperlipidemia, unspecified; E11.40 Type 2 diabetes mellitus with diabetic neuropathy, unspecified; Z79.84 Long term (current) use of oral hypoglycemic drugs | CPT/HCPCS: 99214 ==

== ENCOUNTER → 2024-08-15 10:05 | Outpatient (BNVA) | payer MEDICARE, MEDICAID, SELFPAY | PROVIDERS: PCP Family Medicine; Visit Provider Internal Medicine | DX: E78.5 Hyperlipidemia, unspecified; E11.40 Type 2 diabetes mellitus with diabetic neuropathy, unspecified; Z79.84 Long term (current) use of oral hypoglycemic drugs | CPT/HCPCS: 99214 ==

== ENCOUNTER → 2024-09-25 08:37 | Outpatient (BNVA) | payer MEDICARE, MEDICAID, SELFPAY | PROVIDERS: PCP Family Medicine; Visit Provider Nurse Practitioner Family | DX: L57.0 Actinic keratosis (principal); L89.312 Pressure ulcer of right buttock, stage 2; L21.8 Other seborrheic dermatitis; L72.0 Epidermal cyst; L85.3 Xerosis cutis; Z85.828 Personal history of other malignant neoplasm of skin | CPT/HCPCS: 17000; 99214 ==

== ENCOUNTER → 2024-10-17 11:24 | Outpatient (BNVA) | payer MEDICARE, MEDICAID, SELFPAY | PROVIDERS: PCP Family Medicine; Visit Provider Internal Medicine | DX: E78.5 Hyperlipidemia, unspecified; E11.40 Type 2 diabetes mellitus with diabetic neuropathy, unspecified; Z79.84 Long term (current) use of oral hypoglycemic drugs; Z79.890 Hormone replacement therapy | CPT/HCPCS: 99214 ==

== ENCOUNTER → 2024-12-10 08:36 | Outpatient (BNVA) | payer MEDICARE, MEDICAID, SELFPAY | PROVIDERS: PCP Family Medicine; Visit Provider Nurse Practitioner Family | DX: L85.3 Xerosis cutis (principal); L72.0 Epidermal cyst; Z08 Encounter for follow-up examination after completed treatment for malignant neoplasm; Z85.828 Personal history of other malignant neoplasm of skin; D48.5 Neoplasm of uncertain behavior of skin; L57.0 Actinic keratosis | CPT/HCPCS: 11102; 17000; 99213 ==

== ENCOUNTER 2024-12-16 15:18 | Emergency (ER) | payer MEDICARE, MEDICAID, SELFPAY ==
[2024-12-16 15:19] VITALS: BP 184/93; PULSE 83; RESP 16; TEMP 36.9; O2SAT 98; BMI 45.2
--- NOTE | 2024-12-16 15:21 | XRR_ITS ---
PROCEDURE INFORMATION: Exam: XR Chest Exam date and time: 12/16/2024 3:32 PM Age: 74 years old Clinical indication: Shortness of breath; PT arrives via [facility] for complaints of edema to bilateral lower extremities and abdomen. PT states it's been getting worse for 3 months. PT reports pain all over . PT was found satting 88% on room air upon EMS arrival. ; Additional info: SOB TECHNIQUE: Imaging protocol: Radiologic exam of the chest. Views: 1 view. COMPARISON: CT chest [facility] [id number] 10/22/2024 10:22 AM FINDINGS: Lungs: See Pleural spaces finding. Pleural spaces: Small right and small to moderate left bilateral pleural effusions with associated bilateral basal and perihilar interstitial prominence and some patchy consolidations. Heart/Mediastinum: Moderate cardiomegaly. Bones/joints: Partially visualized lower cervical spine fixation hardware without discrete complications. XR/XR chest 1V portable [id number] IMPRESSION: Pfue-hq-rvkcrapu volume overload, suspected CHF. Superimposed infectious pneumonic process should be entertained in the appropriate clinical setting.
--- NOTE | 2024-12-16 15:25 | ECG_ITS ---
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
--- NOTE | 2024-12-16 15:30 | W.ED.GENADLT ---
HPI - General Adult General: Chief complaint: General Medical Stated complaint: edema to legs Time Seen by Provider: 12/16/24 15:19 Source: patient Mode of arrival: ambulatory Limitations: no limitations History of Present Illness: 74-year-old male who has a history of congestive heart failure states he is on Lasix. States he has been having swelling is been going on for 3 months. Patient wears oxygen as needed at home denies any chest pain but does state he has pain all over that is been going on for months as well he has follow-up with his financial planning advisor tomorrow. Associated symptoms: Deny chest pain, headache(s), nausea, rash or vomiting Related Data Home Medications Medication Instructions Recorded Confirmed albuterol 90 mcg/actuation aerosol 90 mcg inhalation Q4H PRN 10/21/20 10/17/24 inhaler Shortness Of Breath carbamide peroxide 6.5 % ear drops 5 drp otic (ear) DAILY 10/21/20 10/17/24 (Debrox) cholecalciferol (vitamin D3) 25 25 mcg PO DAILY 10/21/20 10/17/24 mcg (1,000 unit) capsule (Vitamin D3) cyclobenzaprine 10 mg tablet 10 mg PO TID PRN Spasms 10/21/20 10/17/24 diclofenac sodium 1 % topical gel 2 g topical QID 10/21/20 10/17/24 diltiazem HCl 180 mg capsule,24 180 mg PO DAILY 10/21/20 10/17/24 hr,extended release docosanol 10 % topical cream 1 applic topical 5XD 10/21/20 10/17/24 (Abreva) docusate sodium 50 mg capsule 50 mg PO DAILY PRN Constipation 10/21/20 10/17/24 ergocalciferol (vitamin D2) 1,250 1,250 mcg PO DAILY 10/21/20 10/17/24 mcg (50,000 unit) capsule (Vitamin D2) furosemide 20 mg tablet (Lasix) 20 mg PO DAILY 10/21/20 10/17/24 gabapentin 300 mg capsule 300 mg PO QID 10/21/20 10/17/24 garlic 1,000 mg PO BID 10/21/20 10/17/24 hydrochlorothiazide 25 mg tablet 25 mg PO DAILY 10/21/20 10/17/24 lisinopril 20 mg tablet 20 mg PO DAILY 10/21/20 10/17/24 metformin 1,000 mg tablet 1,000 mg PO BID 10/21/20 10/17/24 metoprolol succinate 100 mg 100 mg PO Q24H 10/21/20 10/17/24 capsule sprinkle, ext. release 24 hr naproxen 500 mg tablet 500 mg PO BID PRN Pain 10/21/20 10/17/24 potassium gluconate 595 mg (99 mg) 595 mg PO DAILY 10/21/20 10/17/24 tablet umeclidinium 62.5 mcg-vilanterol 1 inh inhalation DAILY 10/21/20 10/17/24 25 mcg/actuation powdr for inhalation (Anoro Ellipta) acetaminophen 500 mg capsule 1,000 mg PO Q6H PRN 02/18/21 10/17/24 docusate sodium 50 mg capsule 50 mg PO DAILY PRN 02/18/21 10/17/24 (Colace Clear) pen needle, diabetic, safety 30 #100 ea 02/18/21 10/17/24 gauge x 1/3 (Novofine Autocover) pioglitazone 30 mg tablet 45 mg PO DAILY 02/18/21 10/17/24 cod liver oil 1 cap PO DAILY 04/28/22 10/17/24 Previous Rx's Medication Instructions Recorded aspirin 81 mg tablet,delayed 81 mg PO DAILY #30 tabs 10/27/20 release pantoprazole 40 mg tablet,delayed 40 mg PO DAILY #30 tabs 10/27/20 release clindamycin phosphate 1 % lotion 1 applic topical DAILY PRN 04/27/22 Dissecting Cellulitis of scalp #60 mL mupirocin 2 % topical ointment 1 applic topical BID #15 grams 08/26/22 ketoconazole 2 % shampoo 1 applic topical .2x weekly #120 mL 02/24/23 ketoconazole 2 % topical cream 1 applic topical BID #30 grams 02/24/23 blood-glucose meter,continuous #1 ea 10/03/23 (Dexcom G7 Copier Field Service Technician) blood-glucose sensor (Dexcom G7 #9 ea 10/03/23 Sensor device) levothyroxine 25 mcg tablet 25 mcg PO DAILY #90 tabs 06/19/24 insulin glargine 100 unit/mL (3 72 unit (0.72 mL) SUBCUT QAM #60 mL 12/14/24 mL) subcutaneous pen (Basaglar KwikPen U-100 Insulin) insulin lispro 100 unit/mL 5 unit (0.05 mL) SUBCUT TID #15 mL 12/14/24 subcutaneous pen (Admelog SoloStar U-100 Insulin lispro) Allergies Allergy/AdvReac Type Severity Reaction Status Date / Time sitagliptin [From ] Allergy ADR-Nausea Verified 10/17/24 08:02 Review of Systems Const: Denies: fever(s), chills, body aches or change in appetite ENMT: Denies: throat pain or dental pain Card: Denies: chest pain Resp: Denies: productive cough GI: Denies: abdominal pain, nausea, vomiting or diarrhea Musc: Reports: extremity swelling; Denies: neck pain or back pain Skin/Breast: Denies: rash Neuro: Denies: headache(s) PFSH ED PFSH: Medical History History of nonmelanoma skin cancer Sleep apnea Hypertension Diabetes Chronic low back pain Osteoarthritis Underlying inflammatory arthritis like rheumatoid arthritis is suspected. DM type 2 (diabetes mellitus, type 2) Surgical History History of back surgery No pertinent past surgical history Family History Mother Cancer Other CAD (coronary artery disease) Social History Smoking and tobacco/nicotine status: never used tobacco/nicotine Alcohol intake: never Substance/Drug Use: never Housing: Assisted Living Facility Physical Exam Const: COMMON NORMALS: patient oriented x3 HENMT: COMMON NORMALS: normocephalic and atraumatic HEAD & SCALP: normocephalic and atraumatic Eye: COMMON NORMALS: Equal, round and reactive pupils present and EOMs intact bilaterally PUPIL: Yes Equal, round and reactive pupils present Neck/C-Spine: COMMON NORMALS: full ROM and supple Chest: COMMONS NORMALS: normal inspection of the chest Resp: COMMON NORMALS: normal respiratory effort, No retractions, No use of accessory muscles and clear to auscultation bilaterally AUSCULTATION: clear to auscultation bilaterally Cardio: COMMON NORMALS: regular rate, regular rhythm and No murmurs present (Cardio) RATE: regular rate RHYTHM: regular rhythm GI: COMMON NORMALS: Normal to inspection, nondistended, normoactive bowel sounds present, Soft to palpation, non-tender and no masses PALPATION: Yes Soft to palpation Extremity: COMMON NORMALS: full ROM NARRATIVE EXTREMITY EXAM: 2+ edema Neuro: COMMON NORMALS: patient oriented x3, moves all extremities and no focal motor deficits Psych: COMMON NORMALS: mental status grossly normal, Normal thought process present and cooperative THOUGHT PROCESS: Normal thought process present Skin: COMMON NORMALS: no rashes or lesions noted and no wounds GENERAL SKIN EXAM: no rashes or lesions noted Course Vital Signs: Vital signs: Vital Signs Temperature 98.5 F 12/16/24 15:19 Pulse Rate 67 12/16/24 16:19 Respiratory Rate 16 12/16/24 16:19 Blood Pressure 111/84 12/16/24 16:19 Pulse Oximetry 97 12/16/24 16:19 Oxygen Delivery Me thod Nasal Cannula 12/16/24 16:19 Oxygen Flow Rate 3 12/16/24 16:19 [facility] - General Adult Medical Decision Making Patient presents here with lower extremity edema that is chronic in nature is no acute worsening. Blood work stable x-ray shows some slight congestion he is not requiring any oxygen here did give him an IV dose of Lasix he follows up with his financial planning advisor tomorrow follow-up as scheduled return if worsening. Medical Records I reviewed the patient's medical records. Lab Data I reviewed the patient's lab results. 12/16/24 15:30 12/16/24 15:30 Radiology Impressions Chest X-Ray 12/16/24 15:21 IMPRESSION: Hgot-ts-famuknea volume overload, suspected CHF. Superimposed infectious pneumonic process should be entertained in the appropriate clinical setting. Laboratory Results WBC 7.39 10^3/uL (3.29-11.43) 12/16/24 15:30 RBC 4.78 10^6/uL (3.85-5.65) 12/16/24 15:30 Hgb 13.30 g/dL (11.27-16.99) 12/16/24 15:30 Hct 42.0 % (37-53) 12/16/24 15:30 MCV 87.9 fl (82-101) 12/16/24 15:30 MCH 27.8 pg (27-33) 12/16/24 15:30 MCHC 31.7 g/dL (30-55) 12/16/24 15:30 RDW 14.6 % (12.1-15.1) 12/16/24 15:30 Plt Count 180 10^3/cmm (157-399) 12/16/24 15: MPV 10.0 fL (7.4-10.4) 12/16/24 15:30 Neut % (Auto) 74.0 % 12/16/24 15:30 Lymph % (Auto) 12.3 % 12/16/24 15:30 Gilliam % (Auto) 10.1 % 12/16/24 15:30 Eos % (Auto) 2.4 % 12/16/24 15:30 Baso % (Auto) 0.9 % 12/16/24 15:30 Neut # (Auto) 5.46 10^3/uL (1.8-7.7) 12/16/24 15:30 Lymph # (Auto) 0.9 10^3/uL (0.8-4.8) 12/16/24 15:30 Gilliam # (Auto) 0.8 10^3/uL (0.2-0.9) 12/16/24 15:30 Eos # (Auto) 0.2 10^3/uL (0.0-0.8) 12/16/24 15:30 Baso # (Auto) 0.1 10^3/uL (0.0-0.1) 12/16/24 15: Nucleated RBC % (auto) 0 % 12/16/24 15:30 Nucleated RBCs # 0.0 /100WBC 12/16/24 15:30 Sodium 135 mmol/L (136-145) L 12/16/24 15:30 Potassium 4.2 mmol/L (3.5-5.1) 12/16/24 15: Chloride 98 mmol/L (98-107) 12/16/24 15:30 Carbon Dioxide 23 mmol/L (22-29) 12/16/24 15:30 Anion Gap 18.2 (5-19) 12/16/24 15:30 BUN 18 mg/dL (8-23) 12/16/24 15:30 Creatinine 0.9 mg/dL (0.7-1.2) 12/16/24 15:30 GFR Calculation Not Reportable 12/16/24 15:30 Glucose 261 mg/dL (65-115) H 12/16/24 15:30 Calculated Osmolality 291 mOsm/kg (285-295) 12/16/24 15:30 Calcium 8.7 mg/dL (8.5-10.5) 12/16/24 15:30 Total Bilirubin 0.4 mg/dL (0.15-1.2) 12/16/24 15:30 AST 13 U/L (0-40) 12/16/24 15:30 ALT 13 U/L (0-41) 12/16/24 15:30 Alkaline Phosphatase 96 U/L (40-130) 12/16/24 15:30 NT-Pro-B Natriuret Pep 884 pg/mL (0-450) H 12/16/24 15:30 Total Protein 7.0 g/dL (6.6-8.7) 12/16/24 15:30 Albumin 3.6 g/dL (3.5-5.2) 12/16/24 15:30 Globulin 3.4 g/dL (1.3-4.6) 12/16/24 15:30 All radiology interpretation(s) finalized by discharge Discharge Plan Discharge Patient Disposition: Home Clinical Impression: Edema of both lower extremities Condition: Stable Prescriptions: No Action acetaminophen 500 mg capsule 1,000 mg PO Q6H PRN Colace Clear 50 mg capsule 50 mg PO DAILY PRN (DME) Novofine Autocover 30 gauge x 1/3 needle See Rx Instructions .ROUTE .MEDSUPPLY Qty: 100 Rx Instructions: use with insulin cod liver oil Capsule 1 cap PO DAILY mupirocin 2 % ointment 1 applic topical BID Qty: 15 1RF Rx Instructions: Apply to affected area 2 times a day until healed. ketoconazole 2 % shampoo 1 applic topical .2x weekly Qty: 120 6RF Rx Instructions: Lather into scalp 2-3 times weekly. Allow to sit on scalp for 5 minutes before rinsing. ketoconazole 2 % cream 1 applic topical BID Qty: 30 6RF Rx Instructions: Apply to red-scaly areas on face and ears 1-2 times daily. clindamycin phosphate 1 % lotion 1 applic topical DAILY PRN (Reason: Dissecting Cellulitis of scalp) Qty: 60 6RF Rx Instructions: Apply thin film to affected area 1-2 times daily as needed (DME) Dexcom G7 Copier Field Service Technician Misc See Rx Instructions .Route Qty: 1 0RF Rx Instructions: As directed (DME) Dexcom G7 Sensor Device See Rx Instructions .Route Qty: 9 0RF Rx Instructions: As directed levothyroxine 25 mcg tablet 25 mcg PO DAILY Qty: 90 1RF insulin glargine [Basaglar KwikPen U-100 Insulin] 100 unit/mL (3 mL) insulin pen 72 unit SUBCUT QAM Qty: 60 1RF insulin lispro [Admelog SoloStar U-100 Insulin] 100 unit/mL insulin pen 5 unit SUBCUT TID Qty: 15 1RF cyclobenzaprine 10 mg Tablet 10 mg PO TID PRN (Reason: Spasms) Abreva 10 % Cream 1 applic TOPICAL 5XD diltiazem HCl 180 mg Capsule,Extended Release 24 Hr 180 mg PO DAILY lisinopril 20 mg Tablet 20 mg PO DAILY docusate sodium 50 mg Capsule 50 mg PO DAILY PRN (Reason: Constipation) metformin 1,000 mg Tablet 1,000 mg PO BID Debrox 6.5 % Drops 5 drp OTIC (EAR) DAILY garlic Capsule 1,000 mg PO BID gabapentin 300 mg Capsule 300 mg PO QID hydrochlorothiazide 25 mg Tablet 25 mg PO DAILY Lasix 20 mg Tablet 20 mg PO DAILY albuterol 90 mcg/actuation Aerosol 90 mcg INHALATION Q4H PRN (Reason: Shortness Of Breath) Vitamin D2 1,250 mcg (50,000 unit) Capsule 1,250 mcg PO DAILY naproxen 500 mg Tablet 500 mg PO BID PRN (Reason: Pain) Vitamin D3 25 mcg (1,000 unit) Capsule 25 mcg PO DAILY potassium gluconate 595 mg (99 mg) Tablet 595 mg PO DAILY diclofenac sodium 1 % Gel 2 g TOPICAL QID Anoro Ellipta 62.5-25 mcg/actuation Blister With Device 1 inh INHALATION DAILY metoprolol succinate 100 mg Capsule,Sprinkle,Er 24hr 100 mg PO Q24H aspirin 81 mg Tablet,Delayed Release (Dr/Ec) 81 mg PO DAILY Qty: 30 0RF pantoprazole 40 mg Tablet,Delayed Release (Dr/Ec) 40 mg PO DAILY Qty: 30 0RF pioglitazone 30 mg tablet 45 mg PO DAILY Discharge Orders: Discharge ED (Routine); Ordered 12/16/24 Ordered By: Madisyn Meyers Referrals: Rambo Melendez DO [Primary Care Provider] - Discharge Diet: Advance as tolerated Discharge Activity: Resume usual activity Patient Instructions: Leg Edema (ED) Coding Level of Care Code ED Sales Porter for Dilma Thompson
[2024-12-16] MEDS: FUROsemide 10 mg/mL SDV 10mL 80 MG IVP (15:37)
[2024-12-16 15:48] LABS: Basophils # 0.1 10^3/uL (0.0-0.1); Basophils % 0.9 %; Eosinophils # 0.2 10^3/uL (0.0-0.8); Eosinophils % 2.4 %; Lymphocytes # 0.9 10^3/uL (0.8-4.8); Lymphocytes % 12.3 %; Mean Corpuscular HGB Conc 31.7 g/dL (30-55); Mean Corpuscular Hemoglobin 27.8 pg (27-33); Mean Corpuscular Volume 87.9 fl (82-101); Monocytes # 0.8 10^3/uL (0.2-0.9); Monocytes % 10.1 %; Neutrophils # 5.46 10^3/uL (1.8-7.7); Nucleated Red Blood Cells % 0 %; Platelet Count 180 10^3/cmm (157-399); Red Blood Count 4.78 10^6/uL (3.85-5.65); Red Cell Distribution Width 14.6 % (12.1-15.1); White Blood Count 7.39 10^3/uL (3.29-11.43)
[2024-12-16 16:14] LABS: Alanine Aminotransferase 13 U/L (0-41); Albumin Level 3.6 g/dL (3.5-5.2); Alkaline Phosphatase 96 U/L (40-130); Anion Gap 18.2 (5-19); Aspartate Amino Transferase 13 U/L (0-40); Blood Urea Nitrogen 18 mg/dL (8-23); Calcium 8.7 mg/dL (8.5-10.5); Carbon Dioxide 23 mmol/L (22-29); Chloride 98 mmol/L (98-107); Creatinine Clr Calc Pharmacy 108.8126; Globulin 3.4 g/dL (1.3-4.6); Glucose 261 mg/dL (65-115); NT Pro B Type Natriuretic Pept 884 pg/mL (0-450); Osmolality Calculated 291 mOsm/kg (285-295); Potassium 4.2 mmol/L (3.5-5.1); Sodium 135 mmol/L (136-145); Total Bilirubin 0.4 mg/dL (0.15-1.2)
[2024-12-16 16:19] VITALS: BP 111/84; PULSE 67; RESP 16; O2SAT 97
[2024-12-16 17:00] VITALS: BP 127/83; PULSE 78; RESP 16; O2SAT 93
[2024-12-16 18:31] VITALS: BP 166/94; PULSE 70; RESP 16; O2SAT 94
[2024-12-16 19:00] VITALS: BP 174/83; PULSE 70; RESP 14; O2SAT 94
[2024-12-16 21:53] VITALS: BP 170/86; PULSE 68; RESP 16; O2SAT 92
== END 2024-12-16 21:53 | disposition home or self-care (01) ==
PROVIDERS: Emergency Provider Emergency Medicine; PCP Family Medicine
DX: R60.0 Localized edema (principal); Z79.84 Long term (current) use of oral hypoglycemic drugs; Z79.82 Long term (current) use of aspirin; E11.9 Type 2 diabetes mellitus without complications; I11.0 Hypertensive heart disease with heart failure; I50.9 Heart failure, unspecified
CPT/HCPCS: 36415; 71045; 80053; 83880; 85025; 93005; 96374; 99285; J1940

== ENCOUNTER → 2024-12-17 13:33 | Outpatient (BNVA) | payer MEDICARE, MEDICAID, SELFPAY | PROVIDERS: PCP Family Medicine; Referring Provider Nurse Practitioner Family; Visit Provider Internal Medicine | DX: I11.0 Hypertensive heart disease with heart failure (principal); R60.0 Localized edema; E78.5 Hyperlipidemia, unspecified; E11.9 Type 2 diabetes mellitus without complications; Z87.891 Personal history of nicotine dependence; I50.30 Unspecified diastolic (congestive) heart failure; Z79.4 Long term (current) use of insulin | CPT/HCPCS: 99205 ==

== ENCOUNTER → 2024-12-19 11:22 | Outpatient (BNVA) | payer MEDICARE, MEDICAID, SELFPAY | PROVIDERS: PCP Family Medicine; Visit Provider Internal Medicine | DX: E11.9 Type 2 diabetes mellitus without complications (principal); E78.5 Hyperlipidemia, unspecified | CPT/HCPCS: 99214 ==

== ENCOUNTER → 2025-01-11 09:50 | Outpatient (BNVA) | payer MEDICARE, MEDICAID, SELFPAY | PROVIDERS: PCP Family Medicine; Visit Provider Internal Medicine | DX: E11.40 Type 2 diabetes mellitus with diabetic neuropathy, unspecified (principal); E78.5 Hyperlipidemia, unspecified | CPT/HCPCS: 99214 ==

== ENCOUNTER → 2025-01-15 08:55 | Outpatient (BNVA) | payer MEDICARE, MEDICAID, SELFPAY | PROVIDERS: PCP Family Medicine; Visit Provider Dermatology | DX: C44.311 Basal cell carcinoma of skin of nose (principal) | CPT/HCPCS: 17282; 99213 ==

== ENCOUNTER → 2025-01-31 17:05 | Outpatient (BNVA) | payer MEDICARE, MEDICAID, SELFPAY | PROVIDERS: PCP Family Medicine; Visit Provider Internal Medicine | DX: I10 Essential (primary) hypertension (principal); I50.9 Heart failure, unspecified; E11.9 Type 2 diabetes mellitus without complications | CPT/HCPCS: 80048; 83880 ==

== ENCOUNTER → 2025-03-21 10:21 | Outpatient (BNVA) | payer MEDICARE, MEDICAID, SELFPAY | PROVIDERS: PCP Family Medicine; Visit Provider Internal Medicine | DX: L85.3 Xerosis cutis (principal); E11.9 Type 2 diabetes mellitus without complications; E78.5 Hyperlipidemia, unspecified; E11.40 Type 2 diabetes mellitus with diabetic neuropathy, unspecified; L87.8 Other transepidermal elimination disorders; X32.XXXA Exposure to sunlight, initial encounter; L81.4 Other melanin hyperpigmentation; L91.8 Other hypertrophic disorders of the skin | CPT/HCPCS: 17000; 99213; 99214 ==

== ENCOUNTER 2025-04-04 12:34 | Outpatient (CLI) | payer MEDICARE, MEDICAID, SELFPAY ==
[2025-04-04 12:40] VITALS: BMI 44.7
--- NOTE | 2025-04-04 12:40 | ECG_ITS ---
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 The perfusion scan will be documented separately. DATA: Baseline heart rate was 90 beats per minute. Baseline blood pressure was 151/76 millimeters of mercury. Target heart rate was 143. Maximum heart rate achieved was 141. which was 98 % of the predicted target heart rate. Maximum blood pressure was 167/89 millimeters of mercury. The reason for ending the test was completion of the protocol. The patient did not experience any symptoms. ELECTROCARDIOGRAM: BASELINE: Sinus rhythm, right bundle branch block, trigeminal PVCs EXERCISE: After Lexiscan injection, no ST-T changes suggestive of ischemic noted. Multiple frequent PVCs reduced CONCLUSION: Please note due to baseline abnormality of the EKG specificity and sensitivity of the EKG portion of LexiScan MIBI stress test will be low 1. EKG not suggestive of ischemia 2. Lexiscan injection unremarkable. 3. Perfusion scan will be documented separately. Electronically Signed On 04-17-2025 21:48:16 CDT by NGUYEN MIKE [id number]
--- NOTE | 2025-04-04 12:41 | USCV_ITS ---
Dobutamine Stress Echo Ant Muhammad Age: 75 Gender: M : 1950 Exam Date: 04/04/2025 13:03 Ordering Phys: Dave Velásquez M.D ([email or web address]) Technologist: WALKER [place] [facility] [place]: cp Rhythm: Sinus Patient History: cp/sob Cardiac Medications: metoprolol Medications in past 24 hours: Contrast: Total Dose (mL): Stress Results Protocol: Pharmacologic Peak Dose (???g/kg/min): 1315 Duration (min:sec): Atropine:(mg) Target HR: 122 Double Product: Resting HR: 87 Resting BP: 151 / 76 Peak HR: Peak BP: / Max Predicted HR: 143 % Max Predicted HR Stress Summary: The hemodynamic response to stress was normal. BP Response: Normal Reason for Termination: The patients target heart rate was achieved Cardiac Symptoms: None ECG Analysis Resting EKG: Sinus rhythm, right bundle branch block, PVCs Stress EKG: Sinus tachycardia, no significant ST T wave changes. PVCs seen Arrhythmia: PVCs MEASUREMENTS (Male/Female) Normal Values FINDINGS At baseline LV systolic function is normal with EF of 60-65%. No regional wall motion abnormalties. Patient reached target heart rates. No regional wall motion abnormality seen at peak stress levels CONCLUSIONS Baseline LV systolic function is normal. No stress-induced regional wall motion abnormalities. Stress test is negative for ischemia Dave Velásquez MD (Electronically Signed) Final Date: 18 April 2025 08:12 S
[2025-04-04] MEDS: DOBUTtamine 200 MG in sodium chloride 0.9% 34 ML 23 MG IV (13:12)
[2025-04-04 13:39] VITALS: BP 125/69; PULSE 100
== END 2025-04-04 12:35 | disposition home or self-care (01) ==
LOC: CDL 12:37
PROVIDERS: Family Provider Internal Medicine Pulmonary Disease; PCP Family Medicine; Visit Provider Internal Medicine
DX: R07.9 Chest pain, unspecified (principal); R06.02 Shortness of breath
CPT/HCPCS: 36415; 93017; 93350; J1250; J7050

== ENCOUNTER → 2025-04-24 10:51 | Outpatient (BNVA) | payer MEDICARE, MEDICAID, SELFPAY | PROVIDERS: Family Provider Internal Medicine Pulmonary Disease; PCP Family Medicine; Visit Provider Nurse Practitioner Family | DX: L57.8 Other skin changes due to chronic exposure to nonionizing radiation (principal); X32.XXXA Exposure to sunlight, initial encounter; L81.4 Other melanin hyperpigmentation; L91.8 Other hypertrophic disorders of the skin; L82.1 Other seborrheic keratosis; Z08 Encounter for follow-up examination after completed treatment for malignant neoplasm; Z85.828 Personal history of other malignant neoplasm of skin; T21.23XA Burn of second degree of upper back, initial encounter; X58.XXXA Exposure to other specified factors, initial encounter | CPT/HCPCS: 99213 ==

== ENCOUNTER → 2025-04-25 09:25 | Outpatient (BNVA) | payer MEDICARE, MEDICAID, SELFPAY | PROVIDERS: Family Provider Internal Medicine Pulmonary Disease; PCP Family Medicine; Visit Provider Internal Medicine | DX: E11.9 Type 2 diabetes mellitus without complications (principal); E78.5 Hyperlipidemia, unspecified; E11.40 Type 2 diabetes mellitus with diabetic neuropathy, unspecified | CPT/HCPCS: 99214 ==

== ENCOUNTER → 2025-04-29 16:50 | Outpatient (BNVA) | payer MEDICARE, MEDICAID, SELFPAY | PROVIDERS: Family Provider Internal Medicine Pulmonary Disease; PCP Family Medicine; Visit Provider Internal Medicine | DX: I10 Essential (primary) hypertension (principal); I50.9 Heart failure, unspecified | CPT/HCPCS: 36415; 80053; 83880; 85025 ==

== ENCOUNTER → 2025-07-02 13:42 | Outpatient (BNVA) | payer MEDICARE, MEDICAID, SELFPAY | PROVIDERS: Family Provider Internal Medicine Pulmonary Disease; PCP Family Medicine; Visit Provider Nurse Practitioner Family | DX: L89.891 Pressure ulcer of other site, stage 1 (principal); Z71.3 Dietary counseling and surveillance; L57.8 Other skin changes due to chronic exposure to nonionizing radiation; X32.XXXA Exposure to sunlight, initial encounter; L81.4 Other melanin hyperpigmentation; L91.8 Other hypertrophic disorders of the skin; L82.1 Other seborrheic keratosis; Z08 Encounter for follow-up examination after completed treatment for malignant neoplasm; Z85.828 Personal history of other malignant neoplasm of skin; T21.23XA Burn of second degree of upper back, initial encounter; X58.XXXA Exposure to other specified factors, initial encounter | CPT/HCPCS: 99213 ==